=== PATIENT | female | born 1970 | race Caucasian/White ===

== ENCOUNTER → 2016-11-09 | Outpatient (CLI) | payer BC ==
[~2016-11-09] MED LIST: PRENTAB26 PO
--- NOTE | 2016-11-09 10:08 | DIAGNOSTIC IMAGING REPORT ---
MRI soft tissue pelvis and left thigh LEFT LOWER EXT NON JOINT W/O CLINICAL HISTORY: ISC HEAL Bursitis, l HAMSTRING TEAR TECHNIQUE: Multiaxial MRI acquisition COMPARISON STUDY: None FINDINGS: Signal characteristics of the bulk of the osseous as well as soft tissue structures are unremarkable. There are findings of an increase in signal at the hamstring insertion at the posterior ischial tuberosity. Appears be a partial intrasubstance tear near the insertion. More distal aspects of the tendon as well as muscular structures appear to be unremarkable. This is at the site of the biceps femoris and semitendinosi musculature insertion. Osseous structures show no significant bone marrow replacing process. Bladder is midline. There is no significant free fluid within the pelvic cul-de-sac. IMPRESSION: 1. Partial tear of the hamstring musculature insertion at the posterior ischial tuberosity.. 2. Tear primarily in in follows the central aspects of the tendons of the semitendinosus and biceps femoris 3. There is partial with no evidence for musculotendinous retraction Electronically signed by: Kieran Reyes M.D. 11/09/2016 10:07 AM Dictated Date/Time: 11/09/2016 9:58 AM
== END | disposition home or self-care (01) ==
LOC: C.MRIBC 08:27
PROVIDERS: ATTEND Orthopaedic Surgery
DX: M70.72 Other bursitis of hip, left hip (principal); S76.312A Strain of muscle, fascia and tendon of the posterior muscle group at thigh level, left thigh, initial encounter; X58.XXXA Exposure to other specified factors, initial encounter

== ENCOUNTER 2022-04-13 13:59 | Inpatient (IN) ==
[2022-04-13] MEDS ORDERED: SODIUM CHLORIDE 0.9% 1000ML 1,000 ML IV ONE (14:15)
--- NOTE | 2022-04-13 14:22 | Emergency Department Note ---
History of Present Illness General Chief complaint: Illness Stated complaint: SOB Time Seen by Provider: 04/13/22 14:03 History of Present Illness Provider complaint: Shortness of breath Onset (ago): day(s) 1 Associated symptoms: + shortness of breath; no chest pain, no cough, no fever/chills, no headaches or no nausea/vomiting 52-year-old female presents emergency department for shortness of breath. 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 While in [place], the patient was diagnosed with lung cancer and was started on a oral chemotherapy medication in [place] for the lung cancer. The patient flew back to the [facility] on March 26 and was developing shortness of breath while on the flight. When the patient landed in [place], the patient was taken to an emergency department there and was admitted to the ICU in [place] for saddle pulmonary embolus and COVID-19. The patient is on Lovenox. The patient has been wearing 2 to 4 L nasal cannula. The patient became increasing shortness of breath today and was satting 70% on the 4 L nasal cannula. Patient was placed on nonrebreather by EMS which improved her oxygen saturation. The patient denies any fever or cough. The patient denies any headache nausea vomiting or diarrhea. No melena or hematochezia. Home Medications Medication Instructions Recorded Confirmed Type Multivit/Min/Iron/Fol Ac/Pren 1 tab PO DAILY ##0 07/14/08 04/13/22 History ( Vitamin) enoxaparin 60 mg/0.6 mL 60 mg subcut BID 04/13/22 04/13/22 History subcutaneous syringe mirtazapine 7.5 mg PO HS 04/13/22 04/13/22 History osimertinib 80 mg PO HS 04/13/22 04/13/22 History vilazodone 40 mg tablet 40 mg PO DAILY 04/13/22 04/13/22 History Allergies Allergy/AdvReac Type Severity Reaction Status Date / Time No Known Allergies Allergy Mild Verified 07/14/08 21:39 Past Med/Surg History Medical History (Updated 04/13/22 @ 18:30 by Wesley Vasquez) COVID History of COVID-19 Lung cancer No pertinent family history Pulmonary embolism Surgical History No pertinent past surgical history Social History Smoking Status: Never smoker Hx Alcohol Use: Yes Alcohol type: wine Hx Substance Use: No Preferred Language: Mauritanian Communication Ability: Effective 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 Beliefs That Will Affect Care: None Current Living Situation: Spouse Other Information That Helps Us Care for You: No Feels Safe at Home: Yes Safety Concerns: Feels Safe At This Time Assistive Devices: Glasses and Oxygen - Continuous Review of Systems A total of 10 systems reviewed and were otherwise negative Physical Exam Vital Signs Vital Signs - 24 hr 04/13/22 14:28 04/13/22 14:33 04/13/22 15:00 Pulse Rate 95 H 112 H Pulse Rate [Right Finger] 105 H Pulse Rhythm Regular Regular Pulse Strength Normal Respiratory Rate 20 20 Respiratory Effort / Characteristics Non-Labored Spontaneous Spontaneous Respiratory Depth Normal Respiratory Pattern Regular Blood Pressure 110/80 Blood Pressure Mean 90 Blood Pressure Position Lying Pulse Oximetry 97 91 96 Oxygen Delivery Method Non-rebreather High Flow Nasal Cannula Non-rebreather Oxygen Flow Rate 15 40 15 Fraction of Inspired Oxygen 80 Sepsis Recent Fever Within 48 Hours No Sepsis New/Unexplained Change in Mental Status N/A Sepsis Action Taken by Nursing No Action Required 04/13/22 15:21 Pulse Rate Pulse Rate [Right Finger] 113 H Pulse Rhythm Pulse Strength Respiratory Rate 18 Respiratory Effort / Characteristics Non-Labored Spontaneous Respiratory Depth Respiratory Pattern Blood Pressure Blood Pressure Mean Blood Pressure Position Pulse Oximetry 96 Oxygen Delivery Method High Flow Nasal Cannula Oxygen Flow Rate 35 Fraction of Inspired Oxygen 40 Sepsis Recent Fever Within 48 Hours Sepsis New/Unexplained Change in Mental Status Sepsis Action Taken by Nursing Physical Exam GENERAL: She is oriented to person, place, and time. Patient on nonrebreather HENT: Exam performed. -Head: Normocephalic and atraumatic. -Right Ear: External ear normal. No mastoid tenderness. -Left Ear: External ear normal. No mastoid tenderness. -Mouth/Throat: The oropharynx is clear and moist. No trismus in the jaw. No dental abscesses or uvula swelling. No oropharyngeal exudate or tonsillar ab scesses. EYES: Conjunctivae and EOM are normal. Pupils are equal, round, and reactive to light. Right eye exhibits no discharge. Left eye exhibits no discharge. No scleral icterus. NECK: Normal range of motion. Neck supple. No JVD present. No spinous process tenderness present. No carotid bruit present. No rigidity. No tracheal deviation and normal range of motion present. No Brudzinski's sign and no Kernig's sign noted. CV: Normal rate, regular rhythm, normal heart sounds and intact distal pulses. There is no peripheral edema. Palpable radial pulses bue. PULM/CHEST: Tachypneic. Rhonchi bilaterally. ABD: The abdomen is soft. Bowel sounds are normal. She has no distension. No mass is present. There is no tenderness. There is no rebound, no guarding, no Armas's sign and no tenderness at McBurney's point. Rovsig negative MUSC/SKEL: Normal range of motion. There is no peripheral edema, tenderness or deformity. LYMPH: No cervical adenopathy. NEURO: She is alert and oriented to person, place, and time. She has normal strength. No cranial nerve deficit or sensory deficit. Coordination and gait normal. GCS eye subscore is 4. GCS verbal subscore is 5. GCS motor subscore is 6. Cerebellar tests wnl. SKIN: Skin is warm and dry. She is not diaphoretic. PSYCH: She has a normal mood and affect. Behavior is normal. Judgment and thought content normal. Course Course 1403: The patient was evaluated in room A9. A complete history and physical exam was performed Cardiac monitoring: An order was placed for continuous cardiac monitoring. The monitor shows a rate of 110 with sinus tachycardia rhythm Patient transitioned from nonrebreather oxygen to high flow nasal cannula. When the patient was taken off nonrebreather the patient's oxygen saturation immediately decreased. 1545: Vital signs stable on supplemental oxygen via high flow nasal cannula. The patient states she feels better with the high flow nasal cannula. Labs show a leukocytosis of 15.29. ABG that was conducted while the patient was on high f low nasal cannula showed a pH of 7.41 PCO2 45 PO2 of 102 bicarb 29. Troponin and proBNP negative. Chest x-ray is concerning for pneumonia. Patient treated with broad-spectrum antibiotics cefepime and vancomycin given her recent stay at the ICU in [place]. Patient be admitted to the [facility] team Dr. Mena notified. Administered Medications Azithromycin 500 mg/ Dextrose 255 mls @ 127.5 mls/hr IV NOW STA Stop: 04/13/22 18:36 Last Admin: 04/13/22 18:00 Dose: 127.5 mls/hr Documented By: DAMON Discontinued Medications Sodium Chloride (Nss 1000ml) 1,000 mls @ 999 mls/hr IV .Q1H1M ONE Stop: 04/13/22 15:15 Last Admin: 04/13/22 15:32 Dose: 999 mls/hr Documented By: RENETTA Cefepime HCl (Maxipime) 2,000 mg in 20 mls @ 5 mls/min IV NOW STA; Protocol Stop: 04/13/22 15:28 Last Admin: 04/13/22 15:41 Dose: 5 mls/min Documented By: RENETTA Vancomycin HCl 1,250 mg/ (Sodium Chloride) 525 mls @ 200 mls/hr IV NOW ONE Stop: 04/13/22 18:02 Last Admin: 04/13/22 16:28 Dose: 200 mls/hr Documented By: RENETTA Critical Care Time Critical Care Time: Yes Total Critical Care Time: 50 I have personally spent greater than 50 minutes of critical care time in the direct management of this patient. This includes bedside care, interpretation of diagnostic studies, and testing, discussion with consultants, patient, and family members, and other required patient management activities. This 50 minutes is in excess of all separately billable procedures. Medical Decision Making Laboratory Data Result diagrams: 04/13/22 14:36 04/13/22 14:36 Lab Results 04/13/22 04/13/22 04/13/22 Range/Units 14:36 14:36 14:36 WBC (4.8-10.8) K/ul RBC (3.93-5.22) M/uL Hgb (12.0-16.0) g/dl Hct (34.1-44.9) % MCV (80.0-100.0) fL MCH (25.0-34.0) pg MCHC (32.0-36.0) g/dL RDW Std Deviation (36.4-46.3) fL RDW Coeff of Regan (11.5-14.5) % Plt Count (130-400) K/uL MPV (9.4-12.3) fL Immature Gran % (Auto) % Neut % (Auto) % Lymph % (Auto) % [place] % (Auto) % Eos % (Auto) % Baso % (Auto) % Neut # (Auto) (1.4-6.5) K/uL Lymph # (Auto) (1.2-3.4) K/uL [place] # (Auto) (0.24-0.82) K/uL Eos # (Auto) (0-0.50) K/uL Baso # (Auto) (0-0.2) K/uL Immature Gran # (Auto) (0.00-0.02) K/uL PT (9.0-12.0) Seconds INR (0.9-1.1) APTT (21.0-31.0) Seconds PTT Ratio ABG pH 7.41 (7.35-7.45) ABG pCO2 45 (35-46) mmHg ABG pO2 102 H (80-95) mmHg ABG HCO3 29 H (19-24) mmol/L ABG O2 Saturation 99.4 H (90-95) % ABG Base Excess 3.2 H (-9-1.8) mEq/L Emmanuel Test Pos (Pos) Oxygen Given 80% Sodium 137 (136-145) mmol/L Potassium 3.9 (3.5-5.1) mmol/L Chloride 105 (98-107) mmol/L Carbon Dioxide 24 (21-32) mmol/L Anion Gap 8 (3-11) BUN 15 (6-23) mg/dl Creatinine 0.75 (0.6-1.2) mg/dl Est Cr Clr Drug Dosing 93.8 ml/min Est GFR ( Amer) 107.7 ml/min Est GFR (Non-Af Amer) 92.9 ml/min BUN/Creatinine Ratio 20.0 (10-20) Glucose 125 H (70-99(Fasting)) mg/dl Calcium 8.5 (8.5-10.1) mg/dl Magnesium 1.9 (1.7-2.4) mg/dl Total Bilirubin 0.3 (0.2-1.0) mg/dl Direct Bilirubin 0.0 (0-0.2) mg/dl AST 34 (13-39) U/L ALT 32 (7-52) U/L Alkaline Phosphatase 57 (34-104) U/L Troponin I High Sens 9.0 (0-14) pg/ml B-Natriuretic Peptide 42 (0-100) pg/ml Total Protein 6.7 (6.0-8.3) gm/dl Albumin 3.3 L (3.4-5.0) gm/dl Lipase 33 (11-82) U/L Procalcitonin (0-0.5) ng/ml SARS-CoV-2, RNA, NAAT (NEGATIVE) 04/13/22 04/13/22 04/13/22 Range/Units 14:36 14:36 14:38 WBC 15.29 H (4.8-10.8) K/ul RBC 4.44 (3.93-5.22) M/uL Hgb 13.8 (12.0-16.0) g/dl Hct 41.6 (34.1-44.9) % MCV 93.7 (80.0-100.0) fL MCH 31.1 (25.0-34.0) pg MCHC 33.2 (32.0-36.0) g/dL RDW Std Deviation 41.5 (36.4-46.3) fL RDW Coeff of Regan 11.9 (11.5-14.5) % Plt Count 214 (130-400) K/uL MPV 9.6 (9.4-12.3) fL Immature Gran % (Auto) 0.9 % Neut % (Auto) 79.4 % Lymph % (Auto) 7.8 % [place] % (Auto) 7.1 % Eos % (Auto) 4.5 % Baso % (Auto) 0.3 % Neut # (Auto) 12.16 H (1.4-6.5) K/uL Lymph # (Auto) 1.19 L (1.2-3.4) K/uL [place] # (Auto) 1.08 H (0.24-0.82) K/uL Eos # (Auto) 0.69 H (0-0.50) K/uL Baso # (Auto) 0.04 (0-0.2) K/uL Immature Gran # (Auto) 0.13 H (0.00-0.02) K/uL PT 11.9 (9.0-12.0) Seconds INR 1.1 (0.9-1.1) APTT 28.9 (21.0-31.0) Seconds PTT Ratio 1.1 ABG pH (7.35-7.45) ABG pCO2 (35-46) mmHg ABG pO2 (80-95) mmHg ABG HCO3 (19-24) mmol/L ABG O2 Saturation (90-95) % ABG Base Excess (-9-1.8) mEq/L Emmanuel Test (Pos) Oxygen Given Sodium (136-145) mmol/L Potassium (3.5-5.1) mmol/L Chloride (98-107) mmol/L Carbon Dioxide (21-32) mmol/L Anion Gap (3-11) BUN (6-23) mg/dl Creatinine (0.6-1.2) mg/dl Est Cr Clr Drug Dosing ml/min Est GFR ( Amer) ml/min Est GFR (Non-Af Amer) ml/min BUN/Creatinine Ratio (10-20) Glucose (70-99(Fasting)) mg/dl Calcium (8.5-10.1) mg/dl Magnesium (1.7-2.4) mg/dl Total Bilirubin (0.2-1.0) mg/dl Direct Bilirubin (0-0.2) mg/dl AST (13-39) U/L ALT (7-52) U/L Alkaline Phosphatase (34-104) U/L Troponin I High Sens (0-14) pg/ml B-Natriuretic Peptide (0-100) pg/ml Total Protein (6.0-8.3) gm/dl Albumin (3.4-5.0) gm/dl Lipase (11-82) U/L Procalcitonin < 0.05 (0-0.5) ng/ml SARS-CoV-2, RNA, NAAT (NEGATIVE) 04/13/22 Range/Units 14:45 WBC (4.8-10.8) K/ul RBC (3.93-5.22) M/uL Hgb (12.0-16.0) g/dl Hct (34.1-44.9) % MCV (80.0-100.0) fL MCH (25.0-34.0) pg MCHC (32.0-36.0) g/dL RDW Std Deviation (36.4-46.3) fL RDW Coeff of Regan (11.5-14.5) % Plt Count (130-400) K/uL MPV (9.4-12.3) fL Immature Gran % (Auto) % Neut % (Auto) % Lymph % (Auto) % [place] % (Auto) % Eos % (Auto) % Baso % (Auto) % Neut # (Auto) (1.4-6.5) K/uL Lymph # (Auto) (1.2-3.4) K/uL [place] # (Auto) (0.24-0.82) K/uL Eos # (Auto) (0-0.50) K/uL Baso # (Auto) (0-0.2) K/uL Immature Gran # (Auto) (0.00-0.02) K/uL PT (9.0-12.0) Seconds INR (0.9-1.1) APTT (21.0-31.0) Seconds PTT Ratio ABG pH (7.35-7.45) ABG pCO2 (35-46) mmHg ABG pO2 (80-95) mmHg ABG HCO3 (19-24) mmol/L ABG O2 Saturation (90-95) % ABG Base Excess (-9-1.8) mEq/L Emmanuel Test (Pos) Oxygen Given Sodium (136-145) mmol/L Potassium (3.5-5.1) mmol/L Chloride (98-107) mmol/L Carbon Dioxide (21-32) mmol/L Anion Gap (3-11) BUN (6-23) mg/dl Creatinine (0.6-1.2) mg/dl Est Cr Clr Drug Dosing ml/min Est GFR ( Amer) ml/min Est GFR (Non-Af Amer) ml/min BUN/Creatinine Ratio (10-20) Glucose (70-99(Fasting)) mg/dl Calcium (8.5-10.1) mg/dl Magnesium (1.7-2.4) mg/dl Total Bilirubin (0.2-1.0) mg/dl Direct Bilirubin (0-0.2) mg/dl AST (13-39) U/L ALT (7-52) U/L Alkaline Phosphatase (34-104) U/L Troponin I High Sens (0-14) pg/ml B-Natriuretic Peptide (0-100) pg/ml Total Protein (6.0-8.3) gm/dl Albumin (3.4-5.0) gm/dl Lipase (11-82) U/L Procalcitonin (0-0.5) ng/ml SARS-CoV-2, RNA, NAAT NEGATIVE (NEGATIVE) Imaging Data Radiologist's Impression: Chest X-Ray 04/13/22 14:16 XR chest 1V portable HISTORY: 52 years-old Female sob acute shortness of breath COMPARISON: None TECHNIQUE: AP view of the chest FINDINGS: Cardiac silhouette is mildly enlarged. Mixed multifocal bilateral reticular interstitial with nodular airspace opacities. No pneumothorax or large pleural effusion. The bones appear grossly intact. IMPRESSION: Diffuse mixed interstitial with nodular consolidative opacities. Findings favor an infectious or inflammatory pneumonitis. Follow-up imaging to document resolution is needed. ACT 112: Negative or not required by law. The above report was generated using voice recognition software. It may contain grammatical, syntax or spelling errors. Electronically signed by: Nate Lao M.D. 04/13/2022 3:07 PM ECG Data Indication: + SOB/dyspnea Rate (beats per minute): 110 Rhythm: + sinus tachycardia ECG Intervals/blocks: + Normal QRS, + Normal LA and + Normal QT-c ECG ST segments: + Normal ST segments MDM Narrative 1403: The patient was evaluated in room A9. A complete history and physical exam was performed Cardiac monitoring: An order was placed for continuous cardiac monitoring. The monitor shows a rate of 110 with sinus tachycardia rhythm Patient transitioned from nonrebreather oxygen to high flow nasal cannula. When the patient was taken off nonrebreather the patient's oxygen saturation immediately decreased. 1545: Vital signs stable on supplemental oxygen via high flow nasal cannula. The patient states she feels better with the high flow nasal cannula. Labs show a leukocytosis of 15.29. ABG that was conducted while the patient was on high flow nasal cannula showed a pH of 7.41 PCO2 45 PO2 of 102 bicarb 29. Troponin and proBNP negative. Chest x-ray is concerning for pneumonia. Patient treated with broad-spectrum antibiotics cefepime and vancomycin given her recent stay at the ICU in [place]. Patient be admitted to the [facility] team Dr. Mena notified. Impression & Plan Hypoxia, Pneumonia Discharge Plan Visit Data Chief Complaint: Illness Stated Complaint: SOB ED Provider: Wesley Vasquez Discharge Problem: Hypoxia, Pneumonia Patient Disposition: Admitted As Inpatient Discharge Instructions Interventions: ED Discharge Assessment Last Done: 04/13/22 17:34
[2022-04-13 14:46] LABS: Basophils # (auto) 0.04 K/uL (0-0.2); Basophils % (auto) 0.3 %; Eosinophils # (auto) 0.69 K/uL (0-0.50); Eosinophils % (auto) 4.5 %; Hematocrit (blood only) 41.6 % (34.1-44.9); Hemoglobin 13.8 g/dl (12.0-16.0); Immature Granulocytes # (auto) 0.13 K/uL (0.00-0.02); Immature Granulocytes % (auto) 0.9 %; Lymphocytes # (auto) 1.19 K/uL (1.2-3.4); Lymphocytes % (auto) 7.8 %; Mean Corpuscular Hemoglobin 31.1 pg (25.0-34.0); Mean Corpuscular Hgb Conc 33.2 g/dL (32.0-36.0); Mean Corpuscular Volume 93.7 fL (80.0-100.0); Mean Platelet Volume 9.6 fL (9.4-12.3); Monocytes # (auto) 1.08 K/uL (0.24-0.82); Monocytes % (auto) 7.1 %; Neutrophils # (auto) 12.16 K/uL (1.4-6.5); Neutrophils % (auto) 79.4 %; Platelet Count 214 K/uL (130-400); RDW Coefficient of Variation 11.9 % (11.5-14.5); RDW Standard Deviation 41.5 fL (36.4-46.3); Red Blood Count 4.44 M/uL (3.93-5.22); White Blood Count 15.29 K/ul (4.8-10.8)
[2022-04-13 14:47] LABS: Base Excess ABG 3.2 mEq/L (-9-1.8); HCO3 ABG 29 mmol/L (19-24); Oxygen Saturation ABG 99.4 % (90-95); PCO2 ABG 45 mmHg (35-46); PO2 ABG 102 mmHg (80-95); pH ABG 7.41 (7.35-7.45)
[2022-04-13 15:00] LABS: Allen Test Pos (Pos); INR 1.1 (0.9-1.1); Partial Thromboplastin Ratio 1.1; Partial Thromboplastin Time 28.9 Seconds (21.0-31.0); Prothrombin Time 11.9 Seconds (9.0-12.0)
--- NOTE | 2022-04-13 15:09 | XRay Report ---
XR chest 1V portable HISTORY: 52 years-old Female sob acute shortness of breath COMPARISON: None TECHNIQUE: AP view of the chest FINDINGS: Cardiac silhouette is mildly enlarged. Mixed multifocal bilateral reticular interstitial with nodular airspace opacities. No pneumothorax or large pleural effusion. The bones appear grossly intact. IMPRESSION: Diffuse mixed interstitial with nodular consolidative opacities. Findings favor an infect ious or inflammatory pneumonitis. Follow-up imaging to document resolution is needed. ACT 112: Negative or not required by law. The above report was generated using voice recognition software. It may contain grammatical, syntax o r spelling errors. Electronically signed by: Nate Lao M.D. 04/13/2022 3:07 PM
--- NOTE | 2022-04-13 15:12 | Electrocardiogram Report ---
Test Reason : Blood Pressure : / mmHG Vent. Rate : 110 BPM Atrial Rate : 110 BPM P-R Int : 160 ms QRS Dur : 096 ms QT Int : 350 ms P-R-T Axes : 059 238 049 degrees QTc Int : 473 ms Poor data quality, interpretation may be adversely affected Sinus tachycardia Possible Left atrial enlargement Abnormal ECG No previous ECGs available Confirmed by Channing Stovall ([id number]) on 04/13/2022 3:12:04 PM Referred By: REFERRED SELF Confirmed By:Channing Stovall
[2022-04-13] MEDS ORDERED: VANCOMYCIN HCL 1,250 MG in SODIUM CHLORIDE 0.9% 500 ML IV ONE (15:25)
[2022-04-13] MEDS ORDERED: CEFEPIME 2,000 MG/20 ML VIAL IV STA (15:25)
[2022-04-13] MEDS ORDERED: VANCOMYCIN CONSULT ACTIVE PRN (15:25)
[2022-04-13 15:40] LABS: Albumin Level 3.3 gm/dl (3.4-5.0); Bilirubin,Total 0.3 mg/dl (0.2-1.0); Calcium 8.5 mg/dl (8.5-10.1); Creatinine Clr Calc Pharmacy 93.8 ml/min; Est GFR (African American) 107.7 ml/min; Est GFR (Non-African American) 92.9 ml/min; Magnesium 1.9 mg/dl (1.7-2.4); Potassium 3.9 mmol/L (3.5-5.1); Total Protein 6.7 gm/dl (6.0-8.3)
[2022-04-13] MEDS ORDERED: AZITHROMYCIN 500 MG in DEXTROSE 5% 250 ML IV STA (16:37)
--- NOTE | 2022-04-13 16:37 | History & Physical Report ---
Date of Service April 13, 2022 Assessment & Plan (1) Acute hypoxemic respiratory failure: Plan: Acute hypoxemic respiratory failure. Was essentially on room air this morning, then with acute drop to 50% range and requiring 35L 40% HFNC to correct SpO2 to mid 90% range. - Ddx includes new/worse PE, bacterial pneumonia, viral pneumonia, and interstitial pulmonary injury from her osimertinib. - CTA chest ordered stat - Labs ordered including: * Procalcitonin * MRSA nares swab & respiratory PCR * Legionella urine antigen - Continue abx of vancomycin, cefepime, and azithromycin for now - Hold osimertinib - Empiric Solu-Medrol 40 mg IV Q8h per pulmonary - Pulmonary consulted given sudden, severe decline in respiratory status - To be monitored in ICU for next 1-2 days. (2) Pulmonary embolism: Plan: Submassive PE diagnosed after her plane flight on 03/26/2022. 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 Has an appointment with [facility] oncologist on , but otherwise has not established care in the [place]. - Hold osimertinib per oncology - Oncology consulted - Discussed case with Dr. Duran. (4) COVID: Plan: Diagnosed in early February while in [place] and again in hospital at [place] after landing in the . Covid test negative in our ED on admission. - No present needs; do not feel Covid is a significant contributing factor at this time. - Do not feel she needs inpatient isolation History of Present Illness Primary Care Provider: Konrad Avery 52yo F w/ without major medical hx prior to this summer who presents with acute hypoxemic respiratory failure. The patient started to have some shortness of breath in the fall of 2020. She was in [place] on a sabbatical and had ongoing work-up throughout the fall. She was diagnosed with metastatic adenocarcinoma of the lung on 02/10/2022 with spread to the lymph nodes per her and her . She was started on osimertinib on 02/26, and has been taking it since. She traveled home on 03/26 and on the flight had acute onset shortness of breath and required O2 for most of the flight which was new for her. Once they landed, she was taken to a hospital in [place], [place] and diagnosed with a submassive PE. She was there until 04/08/2022 when she was discharged on Lovenox 60 mg SQ BID and a low-dose of home O2. She had been doing well until today after lunch. In the morning, she checked her pulse oximeter, and she reports it was high enough (>90%) that she did not need to use her home O2. She had some exams she was working on, and afterward, went to get lunch a little after noon. She had an episode of acute shortness of breath after lunch and checked her pulse with her pulse oximeter and found it to be 50%. It only partially improved when she put her O2 on and turned it up to 6L. She called her who brought a second tank, and combined, they put her on 11 L which only brought her SpO2 up to the 80% range. In the ER, she was put on high-flow nasal cannula with improvement in her SpO2 to the mid-90%. She reports some mild coughing over the last 2 days, but no purulence. No fevers/chills per patient. No chest pain, no palpitations, no nausea, vomiting, no dysuria, polyuria, or changes in BMs. She did have Covid in early February, then apparently tested positive in the hospital in [place], [place] as well which was thought to be a second infection. Allergies Allergy/AdvReac Type Severity Reaction Status Date / Time No Known Allergies Allergy Mild Verified 07/14/08 21:39 Home Medications Medication Instructions Recorded Confirmed Type Multivit/Min/Iron/Fol Ac/Pren 1 tab PO DAILY ##0 07/14/08 04/13/22 History ( Vitamin) enoxaparin 60 mg/0.6 mL 60 mg subcut BID 04/13/22 04/13/22 History subcutaneous syringe mirtazapine 7.5 mg PO HS 04/13/22 04/13/22 History osimertinib 80 mg PO HS 04/13/22 04/13/22 History vilazodone 40 mg tablet 40 mg PO DAILY 04/13/22 04/13/22 History Past Med/Surg History Medical History (Updated 04/13/22 @ 17:05 by Zay Mena MD) COVID Lung cancer No pertinent family history Pulmonary embolism Surgical History No pertinent past surgical history Social History Smoking Status: Never smoker Feels Safe at Home: Yes Review of Systems Review of Systems: All systems reviewed & are unremarkable except as noted in HPI & below Physical Exam Constitutional: WD/WN, vitals as above Eyes: EOM intact bilaterally; no conjunctival abnormality ENMT: external ear and nose normal, oropharynx normal Neck: trachea midline, no thyromegaly normal visual inspection Respiratory: normal respiratory effort, lungs clear to auscultation no respiratory distress Cardiovascular: Rate/Rhythm: regular rhythm and + tachycardic Heart Sounds: normal S1 and normal S2 Gastrointestinal (Abdomen): Inspection/Auscultation: abdomen normal to inspection; abdomen not distended Musculoskeletal: no cyanosis or clubbing, extremities motor strength 5/5 Skin: no rashes, warm and dry Neurologic: moves all extremities and awake Psychiatric: Orientation: alert, oriented to person and cooperative Results & Data Results & Data ([facility]) Vital Signs (Past 12 Hours) Vital Signs Pulse Pulse Resp BP Pulse Ox O2 Del Method O2 Flow Rate 04/13/22 15:21 113 H 18 96 High Flow Nasal Cannula 35 04/13/22 15:00 112 H 96 Non-rebreather 15 04/13/22 14:33 105 H 20 91 High Flow Nasal Cannula 40 04/13/22 14:28 95 H 20 110/80 97 Non-rebreather 15 FiO2 04/13/22 15:21 40 04/13/22 15:00 04/13/22 14:33 80 04/13/22 14:28 PG Care Time/CCT Total # of Minutes Spent Total Time Spent with Patient: Total time spent is greater than 50% in coordination of care (as documented) at patient's floor/unit and/or counseling patient: Coding Level of Care Code 45156 Initial Inpt Care Lvl 3 Diagnoses Acute hypoxemic respiratory failure J96.01 Pulmonary embolism I26.99 Lung cancer C34.90 COVID U07.1
[2022-04-13] MEDS ORDERED: Heparin IV Adult Wt-Based Standard *NO* Bolus Protocol IV SCH (17:20)
--- NOTE | 2022-04-13 17:33 | Critical Care Consultation ---
Date of Consultation April 13, 2022 Assessment & Plan (1) Acute hypoxemic respiratory failure: (2) Pulmonary embolism: (3) Lung cancer: (4) History of COVID-19: Plan 52-year-old female with a recent diagnosis of adenocarcinoma found to have EGFR mutation on directed therapy also recently diagnosed with COVID-19 and pulmonary embolism. She is currently requiring high flow nasal cannula. Neurologic: No significant issues at present. We will need to review her MRI brain reports to evaluate for metastatic disease. Pulmonary: Continue high flow nasal cannula to maintain saturations above 92%. We will start patient on heparin given her recent diagnosis of pulmonary embolism. We will obtain a CT of her chest and lower extremity Dopplers. The x-ray does appear consistent with a history of lymphangitic carcinomatosis. Alveolar hemorrhage may also be playing a role, but her hemoglobin remains normal and she denies hemoptysis. We will start empiric methylprednisolone at a dose of 40 mg 3 times daily. Start empiric antibiotics. Obtain respiratory bio fire PCR. We will consider bronchoscopy to rule out alveolar hemorrhage. Cardiovascular: Obtain echo to evaluate for pulmonary hypertension in the context of a recently diagnosed pulmonary embolism. Gastrointestinal: Regular diet Renal: No issues at present. Infectious disease: Procalcitonin less than 0.05. Obtain MRSA screen. Start vancomycin, cefepime and azithromycin. Respiratory bio fire was above. Recently treated for COVID- 19 viral pneumonia. Obtain serum beta glucan and urine Legionella antigen. Hematologic: Recent diagnosis of adenocarcinoma of the lung on targeted EGFR therapy. We will consult oncology for further recommendations. Endocrine: No significant issues. Monitor glucose closely while on steroids. VTE prophylaxis: Heparin drip CODE STATUS: Full code Family at bedside: Not available Disposition: ICU Care coordinated with bedside nurse and hospitalist service. I have personally spent 42 minutes of critical care time in the direct management of this patient. This is a life/limb threatening event. This includes time spent evaluating patient, direct bedside care, chart review, placing orders, interpretation of diagnostic studies, discussion with consultants, patient, and family members, as well as other required patient management activities. This time is exclusive of all separately billable procedures, and teaching time and separate from and in addition to any other critical care service time. Thank you for allowing us to participate in the care of this patient. History of Present Illness Reason for Consultation: Acute hypoxemic respiratory failure History of Present Illness 52-year-old female with no significant past medical history who was diagnosed with lipidic adenocarcinoma with lymphangitic carcinomatosis in January of this year. She was on sabbatical in [place]. She started having worsening shortness of breath and fatigue since August. 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 She had a chest x-ray and a CT chest done in [place]. 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 She underwent a bronchoscopy in January which resulted in diagnosis of adenocarcinoma. She was started on EGFR therapy with osimertinib. She notes that she had some swelling in her right lower extremity in [place] and this was thought to be related to targeted therapy. She flew back home in [place] and had increasing shortness of breath. She was found to have a large pulmonary embolism and treated with heparin. She was ultimately discharged with Lovenox. This past week she had increasing shortness of breath. She denies any cough or chest pain. No fevers or chills. She was also recently diagnosed with COVID-19 viral pneumonia and treated with remdesivir and dexamethasone. She was discharged home on supplemental oxygen. She is currently requiring high flow oxygen at a flow rate of 35 L/min and 40% FiO2. Chest x-ray demonstrates diffuse reticulonodular opacities. Patient is a lifelong non-smoker. 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 She has traveled all over the world. I reviewed the notes from her mountain services manager in [place]. I also reviewed the microscopy reports from the bronchoalveolar lavage and microscopy reports were negative. The BAL cytology indicated alveolar hemorrhage, and lepidic adenocarcinoma. Allergies Allergy/AdvReac Type Severity Reaction Status Date / Time No Known Allergies Allergy Mild Verified 07/14/08 21:39 Home Medications Medication Instructions Recorded Confirmed Type Multivit/Min/Iron/Fol Ac/Pren 1 tab PO DAILY ##0 07/14/08 04/13/22 History ( Vitamin) enoxaparin 60 mg/0.6 mL 60 mg subcut BID 04/13/22 04/13/22 History subcutaneous syringe mirtazapine 7.5 mg PO HS 04/13/22 04/13/22 History osimertinib 80 mg PO HS 04/13/22 04/13/22 History vilazodone 40 mg tablet 40 mg PO DAILY 08/15/22 08/15/22 History Patient History Medical History (Updated 04/13/22 @ 17:27 by Gregorio Torres MD) COVID History of COVID-19 Lung cancer No pertinent family history Pulmonary embolism Surgical History No pertinent past surgical history Social History Smoking Status: Never smoker Feels Safe at Home: Yes Review of Systems Review of Systems: All systems reviewed & are unremarkable except as noted in HPI & below Physical Exam Physical Exam: Constitutional: Thin appearing female in no significant distress. High flow nasal cannula in place. Eyes: Pupils are equal round and reactive to light. Conjunctivae are normal. Anicteric sclera. Ears nose, mouth and throat: Mallampati class []. Normal posterior oropharynx. Uvula is midline. Neck: Trachea is midline. Visual inspection is normal. Respiratory: Crackles noted at the right lung base. Mildly increased work of breathing. No wheezes. Cardiovascular: Regular rate and rhythm. No murmurs. No edema. Gastrointestinal: Normal bowel sounds, soft, nontender and nondistended. No hepatosplenomegaly noted. Musculoskeletal: No cyanosis. Patient is able to move all extremities. Skin: No rashes, warm dry and intact. Neurologic: No obvious focal neurological deficits seen. Psychiatric: Alert and oriented x3 with a euthymic affect. Results & Data Results & Data ([facility]) Vital Signs (Past 12 Hours) Vital Signs Pulse Pulse Resp BP Pulse Ox O2 Del Method O2 Flow Rate 04/13/22 15:21 113 H 18 96 High Flow Nasal Cannula 35 04/13/22 15:00 112 H 96 Non-rebreather 15 04/13/22 14:33 105 H 20 91 High Flow Nasal Cannula 40 04/13/22 14:28 95 H 20 110/80 97 Non-rebreather 15 FiO2 04/13/22 15:21 40 04/13/22 15:00 04/13/22 14:33 80 04/13/22 14:28 Coding Level of Care Code Critical Care 1st 30-74 mins Diagnoses Acute hypoxemic respiratory failure J96.01 Pulmonary embolism I26.99 Lung cancer C34.90 History of COVID-19 Z86.16 Time Spent (min) 42
[2022-04-13] MEDS ORDERED: HEPARIN 25000 UNIT/500 ML D5W IV ONE (17:44)
[2022-04-13] MEDS ORDERED: ONDANSETRON INJ 2 MG/ML 2 ML VIAL IV PRN (18:22)
[2022-04-13] MEDS ORDERED: ACETAMINOPHEN 325 MG TAB PO PRN (18:22)
[2022-04-13] MEDS: HEPARIN SODIUM/DEXTROSE 25,000 UNITS/500 ML BAG IV SCH (19:02)
[2022-04-13] MEDS ORDERED: ENOXAPARIN INJ 60 MG/0.6 ML SYR SQ SCH (21:00)
[2022-04-13] MEDS: MIRTAZAPINE TAB 15 MG TAB PO SCH (22:14)
[2022-04-13] MEDS ORDERED: LORazepam 0.5 MG TAB PO STA (22:18)
[2022-04-14] MEDS: methylPREDNISolone 40 MG in SYRINGE 0 ML IV SCH ×3 (01:21→20:31)
[2022-04-14] MEDS: CEFEPIME 2,000 MG in SYRINGE 0 ML IV SCH ×4 (01:22→23:41)
[2022-04-14 01:49] LABS: Hemoglobin 12.2 g/dl (12.0-16.0); Mean Corpuscular Volume 94.1 fL (80.0-100.0); Mean Platelet Volume 9.9 fL (9.4-12.3); Platelet Count 152 K/uL (130-400); RDW Coefficient of Variation 11.9 % (11.5-14.5); RDW Standard Deviation 41.3 fL (36.4-46.3); Red Blood Count 3.93 M/uL (3.93-5.22); White Blood Count 13.58 K/ul (4.8-10.8)
[2022-04-14 02:04] LABS: Partial Thromboplastin Ratio 1.6; Partial Thromboplastin Time 44.8 Seconds (21.0-31.0)
[2022-04-14 02:09] LABS: BUN Creatinine Ratio 19.7 (10-20); Est GFR (African American) 115.1 ml/min; Est GFR (Non-African American) 99.3 ml/min; Magnesium 1.8 mg/dl (1.7-2.4)
[2022-04-14] MEDS ORDERED: MAGNESIUM SULFATE / D5W 1 GM/100 ML BAG IV ONE (02:12)
--- NOTE | 2022-04-14 07:07 | Ultrasound Report ---
ULTRASOUND BILATERAL LOWER EXTREMITY VENOUS CLINICAL HISTORY: Leg pain COMPARISON STUDY: No priors. TECHNIQUE: Real-time, grayscale, and color Doppler sonography of the deep veins of the right and left lower extremity was performed from the inguinal crease to the calf. Compression and augmentation wer e utilized. FINDINGS: Right lower extremity: Occlusive deep venous thrombosis is seen within the right calf within the post erior tibial veins as well as the peroneal veins. No above knee deep venous thrombosis is identified. The common femoral, superficial femoral, and popliteal veins are patent and normally compressible. T he greater saphenous vein and the profunda femoris vein at the junction with the common femoral vein are clear. Left lower extremity: Occlusive superficial venous thrombus is seen within the gastrocnemius vein ext ending from the popliteal fossa into the upper calf. There is no sonographic evidence of deep venous thrombosis in the left lower extremity. The common femoral, superficial femoral, and popliteal veins are patent and normally compressible. The greater saphenous vein and the profunda femoris vein at the junction with the common femoral vein are clear. The visualized deep veins of the calf veins are pat ent. IMPRESSION: 1. There is occlusive deep venous thrombosis in the right calf as above. 2. There is occlusive superficial venous thrombosis in the left lower extremity as above. ACT 112: Negative or not required by law. Electronically signed by: Frankie Dempsey M.D. 04/14/2022 7:06 AM
[2022-04-14] MEDS ORDERED: OPTIRAY 300 500mL IV ONE (07:46)
[2022-04-14] MEDS ORDERED: STAT IV STA (07:54)
--- NOTE | 2022-04-14 07:59 | Critical Care Progress Note ---
Date of Service April 14, 2022 Assessment & Plan (1) Acute hypoxemic respiratory failure: (2) Pulmonary embolism: (3) Lung cancer: (4) History of COVID-19: (5) Pneumonitis: Plan 52-year-old female with a recent diagnosis of adenocarcinoma found to have EGFR mutation on directed therapy also recently diagnosed with COVID-19 and pulmonary embolism. She is currently requiring high flow nasal cannula. Neurologic: No significant issues at present. We will need to review her MRI brain reports to evaluate for metastatic disease. Pulmonary: Her oxygen requirements have improved significantly and she is currently on 6 L of oxygen. 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 CT chest from today reviewed with large bilateral pulmonary emboli. Patient notes that she had a saddle pulmonary embolism recently. We are getting the CT chest from the outside hospital uploaded. Heparin drip therapeutic at this time. Hypoxia likely multifactorial due to possible pneumonitis, lymphangitic carcinomatosis and pulmonary embolism. The primary tumor is difficult to identify on the CT chest given the lepidic nature of her adenocarcinoma. She had an MRI of her brain in [place] this past year and which was negative for metastases. She did not have any CT abdominal imaging or PET scan for complete staging. She appears to have cystic disease on her CT chest from today. We will compare this to her prior imaging. Cardiovascular: Echo completed with results pending. Will evaluate for pulmonary pretension. Gastrointestinal: Regular diet Renal: No issues at present. Replace electrolytes as needed. Infectious disease: Procalcitonin less than 0.05. MRSA screen negative. Discontinue vancomycin. Continue cefepime and azithromycin. Respiratory bio fire pending. Recently treated for COVID-19 viral pneumonia. Serum beta glucan pending. Urine Legionella pending. Hematologic: Recent diagnosis of adenocarcinoma of the lung on targeted EGFR therapy. Alternative therapy due to concerns of possible pneumonitis. Patient also with failure of treatment with Lovenox. Evidence of acute PE. This may be resolving pulmonary embolism from her prior admission at an outside hospital. She may also have tumor emboli syndrome but this is difficult to test for. Lower extremity ultrasound with occlusive DVT in the right calf and occlusive superficial venous thrombosis in the left lower extremity. Primary tumor difficult to identify, but very likely to be lung origin given the mutation. Endocrine: No significant issues. Monitor glucose closely while on steroids. VTE prophylaxis: Heparin drip CODE STATUS: Full code Family at bedside: Not available Disposition: ICU I have personally spent 42 minutes of critical care time in the direct management of this patient. This is a life/limb threatening event. This includes time spent evaluating patient, direct bedside care, chart review, placing orders, interpretation of diagnostic studies, discussion with consultants, patient, and family members, as well as other required patient management activities. This time is exclusive of all separately billable procedures, and teaching time and separate from and in addition to any other critical care service time. Thank you for allowing us to participate in the care of this patient. Admission and Anticipated Discharge Date Admission Date: April 13, 2022 Subjective Patient seen and examined this morning. She appears comfortable. Remains on high flow nasal cannula. She went for CT chest this morning. Breathing is comfortable. Minimal shortness of breath at rest. She does have shortness of breath with exertion. Hemodynamics unremarkable. Physical Exam Physical Exam: Constitutional: Thin appearing female in no significant distress. High flow nasal cannula in place. Eyes: Pupils are equal round and reactive to light. Conjunctivae are normal. Anicteric sclera. Ears nose, mouth and throat: Deferred. Neck: Trachea is midline. Visual inspection is normal. Respiratory: Crackles noted at the right lung base. Mildly increased work of breathing. No wheezes. Cardiovascular: Regular rate and rhythm. No murmurs. No edema. Gastrointestinal: Normal bowel sounds, soft, nontender and nondistended. No hepatosplenomegaly noted. Musculoskeletal: No cyanosis. Patient is able to move all extremities. Skin: No rashes, warm dry and intact. Neurologic: No obvious focal neurological deficits seen. Psychiatric: Alert and oriented x3 with a euthymic affect. Results & Data Results & Data ([facility]) Vital Signs (Past 12 Hours) Vital Signs Temp Pulse Pulse Resp BP Pulse Ox O2 Del Method 04/14/22 05:00 59 L 18 97 High Flow Nasal Cannula 04/14/22 05:00 36.5 C 04/14/22 04:00 55 L 21 97 04/14/22 04:00 92/51 L 04/14/22 03:00 68 34 H 99 04/14/22 03:00 101/53 L 04/14/22 02:00 57 L 20 98 04/14/22 02:00 87/46 L 04/14/22 01:00 60 22 98 04/14/22 01:00 87/51 L 04/14/22 00:00 68 20 97 04/14/22 00:00 100/55 L 04/14/22 01:00 36.4 C L 04/13/22 23:00 70 24 97 04/13/22 23:00 100/55 L 04/13/22 22:00 91 H 26 H 89 L 04/13/22 22:00 107/73 04/13/22 21:00 89 13 92 04/13/22 21:00 113/59 L 04/14/22 00:00 70 04/13/22 22:53 72 22 97 High Flow Nasal Cannula 04/13/22 20:00 107 H 28 H 92 High Flow Nasal Cannula 04/13/22 20:00 122/76 04/13/22 20:16 High Flow Nasal Cannula 04/13/22 20:15 37.2 C 04/13/22 20:00 94 H 26 H 92 High Flow Nasal Cannula O2 Flow Rate FiO2 04/14/22 05:00 30 45 04/14/22 05:00 04/14/22 04:00 04/14/22 04:00 04/14/22 03:00 04/14/22 03:00 04/14/22 02:00 04/14/22 02:00 04/14/22 01:00 04/14/22 01:00 04/14/22 00:00 04/14/22 00:00 04/14/22 01:00 04/13/22 23:00 04/13/22 23:00 04/13/22 22:00 04/13/22 22:00 04/13/22 21:00 04/13/22 21:00 04/14/22 00:00 04/13/22 22:53 30 60 04/13/22 20:00 30 40 04/13/22 20:00 04/13/22 20:16 30 40 04/13/22 20:15 04/13/22 20:00 30 40 Coding Level of Care Code 72586 Subs Hosp Care Lvl 3 Diagnoses Acute hypoxemic respiratory failure J96.01 Pulmonary embolism I26.99 Lung cancer C34.90 History of COVID-19 Z86.16 Pneumonitis J18.9
[2022-04-14] MEDS ORDERED: VANCOMYCIN HCL 1,000 MG in SODIUM CHLORIDE 0.9% 250 ML IV SCH (08:00)
[2022-04-14] MEDS ORDERED: CALCIUM GLUCONATE 10% 1,000 MG in DEXTROSE 5% 50 ML IV ONE (08:00)
--- NOTE | 2022-04-14 08:08 | CT Scan Report ---
CT ANGIOGRAPHY OF THE CHEST, PULMONARY EMBOLUS PROTOCOL CLINICAL HISTORY: Shortness of breath. Chest pain. Reported history of lung cancer. Evaluate for pulm onary embolus. COMPARISON STUDY: Chest radiograph April 13, 2022. TECHNIQUE: Following IV administration of 1 mL of Optiray, helical axial images of the chest were obt ained utilizing the pulmonary embolus protocol. Maximal intensity projections and sagittal and coron al reformats were viewed on an independent 3D workstation. IV contrast was administered without comp lication. Automated exposure control was utilized for the study. A dose lowering technique was util ized adhering to the principles of ALARA. CT DOSE: 265.62 mGy.cm FINDINGS: Note is made of numerous pulmonary emboli. These include emboli within the lobar pulmonary arteries of the bilateral lower lobes extending into segmental branches of both lower lobes. There a re additional segmental emboli within the left upper lobe. Mild cardiomegaly is noted. There is strai ghtening of the interventricular septum. Trace pericardial effusion is present. There is a small hiat al hernia. No pneumothorax or pleural effusion is present. Note is made of extensive nodular airspace opacities throughout the lungs. These are superimposed upon chronic lung disease. Specifically, note is made of innumerable cystic foci throughout the lungs which have thin park. No cavitation is pres ent. Central airways are patent. No acute fracture or suspicious lesion within the visualized bony th orax. Visualized portions of the upper abdomen are unremarkable. IMPRESSION: 1. Numerous bilateral pulmonary emboli, as described above. Straightening of the interventricular sep tasha and mild dilatation of the right ventricle raises the possibility of right heart strain. 2. Extensive nodular opacities throughout the lungs. The appearance favors pneumonia. However, a neop lastic etiology cannot be excluded given the reported history of lung cancer. Correlation with prior imaging studies, if available, is recommended. 3. Numerous cystic/emphysematous foci throughout the lungs. The findings favor emphysema however cyst ic lung disease could appear similar. ACT 112: Negative or not required by law. Electronically signed by: Ezekiel Roger M.D. 04/14/2022 8:06 AM
[2022-04-14] MEDS: AZITHROMYCIN 250 MG TAB PO SCH (08:31)
[2022-04-14 08:37] LABS: Adenovirus PCR Not Detected (NotDetected); Bordetella parapertussis PCR Not Detected (NotDetected); Bordetella pertussis PCR Not Detected (NotDetected); Chlamydia pneumoniae PCR Not Detected (NotDetected); Coronavirus 229E PCR Not Detected (NotDetected); Coronavirus CoV-2 (COVID19)PCR Not Detected (NotDetected); Coronavirus HKU1 PCR Not Detected (NotDetected); Coronavirus NL63 PCR Not Detected (NotDetected); Coronavirus OC43PCR Not Detected (NotDetected); Human Metapneumovirus PCR Not Detected (NotDetected); Influenza A PCR Not Detected (NotDetected); Influenza B PCR Not Detected (NotDetected); Mycoplasma pneumoniae PCR Not Detected (NotDetected); Parainfluenza Virus 1 PCR Not Detected (NotDetected); Parainfluenza Virus 2 PCR Not Detected (NotDetected); Parainfluenza Virus 3 PCR Not Detected (NotDetected); Parainfluenza Virus 4 PCR Not Detected (NotDetected); Respiratory Syncytial VirusPCR Not Detected (NotDetected); Rhinovirus/Enterovirus PCR Not Detected (NotDetected)
[2022-04-14 09:21] LABS: Partial Thromboplastin Ratio 1.9
[2022-04-14 09:22] LABS: Partial Thromboplastin Time 52.4 Seconds (21.0-31.0)
[2022-04-14] MEDS: [UNRECOGNIZED DRUG - REMARK] SCH (09:49)
[2022-04-14] MEDS: VILAZODONE HCL 40 MG PO SCH (09:57)
--- NOTE | 2022-04-14 13:38 | Hospitalist Progress Note ---
Date of Service April 14, 2022 Assessment & Plan (1) Acute hypoxemic respiratory failure: Plan: Acute hypoxemic respiratory failure. Was essentially on room air morning of admission, then with acute drop to 50% range and requiring 35L 40% HFNC to correct SpO2 to mid 90% range. CTA chest on 04/14 showed extensive PEs and extensive nodular opacities. MRSA swab and respiratory PCR were both negative. - Ddx includes bacterial pneumonia, viral pneumonia, and interstitial pulmonary injury from her osimertinib. - Continue abx of cefepime and azithromycin for now; vancomycin stopped on 04/13 for negative MRSA swab. - Hold osimertinib - Empiric Solu-Medrol 40 mg IV Q8h per pulmonary - Pulmonary consulted - Plan for bronchoscopy tomorrow. (2) Pulmonary embolism: Plan: Submassive PE diagnosed after her plane flight on 03/26/2022. 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 Has an appointment with [facility] oncologist on , but otherwise has not established care in the [place]. - Hold osimertinib per oncology - Oncology consulted - Discussed case with Dr. Duran. (4) COVID: Plan: Diagnosed in early February while in [place] and again in hospital at [place] after landing in the . Covid test negative in our ED on admission. - No present needs; do not feel Covid is a significant contributing factor at this time. - Do not feel she needs inpatient isolation Admission and Anticipated Discharge Date Admission Date: April 13, 2022 Subjective Definitely more comfortable today. Down to 6L NC and not feeling overly short of breath. No fevers/chills. Reports no chest pain, shortness of breath, abdominal pain, nausea, or vomiting. Physical Exam Constitutional: WD/WN, vitals as above Eyes: EOM intact bilaterally; no conjunctival abnormality ENMT: external ear and nose normal, oropharynx normal Neck: trachea midline, no thyromegaly normal visual inspection Respiratory: normal respiratory effort, lungs clear to auscultation no respiratory distress Cardiovascular: Rate/Rhythm: regular rate and regular rhythm Heart Sounds: normal S1 and normal S2 Extremities: + edema (Trace right ankle edema; improved from yesterday) Gastrointestinal (Abdomen): Inspection/Auscultation: abdomen normal to inspection; abdomen not distended Musculoskeletal: no cyanosis or clubbing, extremities motor strength 5/5 Skin: no rashes, warm and dry Neurologic: moves all extremities and awake Psychiatric: Orientation: alert, oriented to person and cooperative Results & Data Results & Data ([facility]) Vital Signs (Past 12 Hours) Vital Signs Temp Pulse Pulse Resp BP Pulse Ox O2 Del Method 04/14/22 12:00 36.5 C 04/14/22 11:00 80 25 H 90 04/14/22 11:00 132/70 04/14/22 10:00 117/71 04/14/22 10:00 80 23 117/71 91 Nasal Cannula 04/14/22 09:00 87 23 98/62 L 96 Nasal Cannula 04/14/22 08:50 84 19 111/65 86 L Nasal Cannula 04/14/22 07:20 72 24 90 High Flow Nasal Cannula 04/14/22 07:00 70 14 97/59 L 92 High Flow Nasal Cannula 04/14/22 08:00 112 H 04/14/22 08:00 Nasal Cannula 04/14/22 08:00 Nasal Cannula 04/14/22 08:52 Nasal Cannula 04/14/22 07:00 36.4 C 04/14/22 05:00 59 L 18 97 High Flow Nasal Cannula 04/14/22 05:00 36.5 C 04/14/22 04:00 55 L 21 97 04/14/22 04:00 92/51 L 04/14/22 03:00 68 34 H 99 04/14/22 03:00 101/53 L 04/14/22 02:00 57 L 20 98 04/14/22 02:00 87/46 L O2 Flow Rate FiO2 04/14/22 12:00 04/14/22 11:00 04/14/22 11:00 04/14/22 10:00 04/14/22 10:00 6 04/14/22 09:00 6 04/14/22 08:50 6 04/14/22 07:20 30 50 04/14/22 07:00 30 50 04/14/22 08:00 04/14/22 08:00 6 04/14/22 08:00 04/14/22 08:52 6 04/14/22 07:00 04/14/22 05:00 30 45 04/14/22 05:00 04/14/22 04:00 04/14/22 04:00 04/14/22 03:00 04/14/22 03:00 04/14/22 02:00 04/14/22 02:00 PG Care Time/CCT Total # of Minutes Spent Total Time Spent with Patient: Total time spent is greater than 50% in coordination of care (as documented) at patient's floor/unit and/or counseling patient: Coding Level of Care Code 80070 Subseq Hosp Care Lvl 3 Diagnoses Acute hypoxemic respiratory failure J96.01 Pulmonary embolism I26.99 Lung cancer C34.90 COVID U07.1
--- NOTE | 2022-04-14 13:57 | XCELERA ---
[id number]
[2022-04-14] MEDS: HEPARIN SODIUM/DEXTROSE 25,000 UNITS/500 ML BAG IV SCH (15:13)
[2022-04-14] MEDS: MIRTAZAPINE TAB 15 MG TAB PO SCH (20:32)
--- NOTE | 2022-04-15 02:00 | Consultation Report ---
DATE OF SERVICE: 04/14/2022. REASON FOR CONSULTATION: Newly diagnosed lung cancer, on osimertinib. 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 She indicates that while on sabbatical in [place], she developed shortness of breath for which she underwent extensive workup, which was essentially negative. She subsequently had a chest x-ray obtained while in [place] early this year, which revealed abnormal findings for which CT chest was obtained. CT chest was nonspecific and so she underwent bronchoscopy around January 2022 which revealed adenocarcinoma of the lung with molecular testing revealing EGFR and TP53 mutations. She was subsequently started on osimertinib and returned back to the . After arriving in [place], she presented with shortness of breath for which CT angiogram was obtained, which revealed a large pulmonary embolism for which she was initially placed on therapeutic unfractionated heparin and transitioned to weight-based Lovenox. Of note, the patient was also recently diagnosed with COVID-19 pneumonia for which she received remdesivir and dexamethasone. The patient presented to the ER on 04/13/2022 with worsening shortness of breath secondary to hypoxemic respiratory failure for which she initially required 35 liters 40% HFNC. CTA chest obtained on 04/13/2022 revealed numerous bilateral pulmonary emboli with straightening of the intraventricular septum and mild dilatation of the right ventricle, raising possibility of right heart strain, extensive nodular opacities within the lungs with appearance favoring pneumonia; however, neoplastic etiology could not be excluded and numerous cystic/emphysematous foci within the lungs favoring emphysema; however, cystic lung disease could appear similar. Lower extremity ultrasound also obtained on 04/13/2022 revealed occlusive DVT in the right calf as well as occlusive superficial vein thrombosis in the left lower extremity. She was subsequently placed on therapeutic unfractionated heparin, broad- spectrum antibiotics, and Solu-Medrol 40 mg IV q. 8 hours. At the time of evaluating the patient, she was doing better from a respiratory standpoint requiring only 6 liters per minute intranasal oxygen via nasal cannula. She complained of shortness of breath mostly with exertion, but denied any other significant complaints. Denies family history of cancers. ALLERGIES: No known drug allergies. HOME MEDICATIONS: 1. Osimertinib 80 mg p.o. at bedtime. 2. Lovenox. 3. Multivitamin daily. 4. Mirtazapine. 5. Vilazodone. PAST MEDICAL HISTORY: 1. Lung cancer. 2. Pulmonary embolism. PAST SURGICAL HISTORY: Unremarkable. SOCIAL HISTORY: Denies smoking, significant alcohol or illicit drug use. REVIEW OF SYSTEMS: Unremarkable except as noted above. PHYSICAL EXAMINATION: Essentially unremarkable except as noted above. ASSESSMENT AND PLAN: 1. Adenocarcinoma of the lung with EGFR mutation. 2. Bilateral pulmonary embolism and bilateral lower extremity deep venous thrombosis. 3. History of COVID. A very pleasant female who was recently diagnosed with adenocarcinoma of the lung and found to have EGFR and TP53 mutations on molecular testing for which she was placed on Tagrisso in late January 2022. The patient presented with worsening shortness of breath, which I suspect is largely multifactorial due to extensive pulmonary embolisms, recent history of COVID-19 pneumonia, previous underlying lung disease, and possibly interstitial lung disease from osimertinib. Discussed my thoughts with her. I explained to the patient that interstitial lung disease is a rare, but can be a potentially fatal complication of osimertinib. Given multiple potential causes of hypoxic respiratory failure and imaging findings, would recommend BAL to rule out underlying infection. If BAL is negative for infection, she may be a candidate for retrial with osimertinib with possible low-dose steroids.Otherwise, woul treat with carboplatin/pemetrexed. Agree with broad-spectrum antibiotics, steroids, and therapeutic unfractionated heparin at this time. Would recommend switching to Eliquis upon discharge from hospital since she seems to have failed Lovenox with worsening bilateral pulmonary embolisms. The patient is already scheduled to be evaluated by oncologist at [facility] later this month, which she will continue to follow up with. Will be happy to see her at [facility] if she so desires. Thank you for this consult. Oncology will follow the patient peripherally while in the hospital. Please feel free to call if you have any further questions. Job ID: [id number] [facility]ENTERErnie
[2022-04-15] MEDS: methylPREDNISolone 40 MG in SYRINGE 0 ML IV SCH ×3 (03:30→20:13)
[2022-04-15 05:58] LABS: Hematocrit (blood only) 35.6 % (34.1-44.9); Mean Corpuscular Hemoglobin 31.5 pg (25.0-34.0); Mean Corpuscular Hgb Conc 33.7 g/dL (32.0-36.0); Mean Corpuscular Volume 93.4 fL (80.0-100.0); Mean Platelet Volume 9.7 fL (9.4-12.3); Platelet Count 135 K/uL (130-400); RDW Standard Deviation 41.2 fL (36.4-46.3); Red Blood Count 3.81 M/uL (3.93-5.22); White Blood Count 24.52 K/ul (4.8-10.8)
[2022-04-15 06:11] LABS: Partial Thromboplastin Ratio 1.4; Partial Thromboplastin Time 37.5 Seconds (21.0-31.0)
[2022-04-15 06:22] LABS: Basophils # (auto) 0.03 K/uL (0-0.2); Basophils % (auto) 0.1 %; Immature Granulocytes # (auto) 0.28 K/uL (0.00-0.02); Immature Granulocytes % (auto) 1.1 %; Lymphocytes # (auto) 0.98 K/uL (1.2-3.4); Monocytes # (auto) 0.75 K/uL (0.24-0.82); Monocytes % (auto) 3.1 %; Neutrophils # (auto) 22.48 K/uL (1.4-6.5); Neutrophils % (auto) 91.7 %
[2022-04-15 06:27] LABS: BUN Creatinine Ratio 22.7 (10-20); Calcium 8.3 mg/dl (8.5-10.1); Creatinine Clr Calc Pharmacy 101.4 ml/min; Est GFR (African American) 119.4 ml/min; Magnesium 2.1 mg/dl (1.7-2.4); Phosphorus 3.1 mg/dl (2.5-4.9); Potassium 4.3 mmol/L (3.5-5.1)
[2022-04-15] MEDS: CEFEPIME 2,000 MG in SYRINGE 0 ML IV SCH ×2 (07:16→16:14)
[2022-04-15] MEDS ORDERED: MIDAZOLAM HCL 5 MG/ML 1 ML VIAL ONE (08:22)
[2022-04-15] MEDS ORDERED: fentaNYL citrate 100 MCG/2 ML VIAL ONE ×2 (08:23→08:25)
--- NOTE | 2022-04-15 08:27 | History & Physical Bridge Note ---
Date of Service April 15, 2022 History & Physical Bridge Note I have examined the patient, reviewed the History & Physical and in the interval since the performance of the History & Physical I have noted the following changes of clinical significance: no changes noted
--- NOTE | 2022-04-15 08:29 | Pre Anesthesia Assessment ---
Date of Service April 15, 2022 Pre Sedation Assessment Vital Signs Temp Pulse Pulse Resp BP Pulse Ox O2 Del Method 04/15/22 08:14 36.8 C 04/15/22 08:09 High Flow Nasal Cannula 04/15/22 06:00 85 24 95 Nasal Cannula 04/15/22 06:00 119/66 04/15/22 05:00 61 21 04/15/22 06:01 66 14 95 High Flow Nasal Cannula 04/15/22 05:44 36.8 C 04/15/22 04:00 58 L 18 Nasal Cannula 04/15/22 03:00 58 L 19 04/15/22 02:00 61 19 98 04/15/22 02:00 97/47 L 04/15/22 01:00 63 16 97 04/15/22 01:00 109/56 L 04/15/22 02:14 36.7 C 04/15/22 00:00 68 18 96 Nasal Cannula 04/15/22 00:00 105/59 L 04/15/22 00:00 62 04/14/22 23:00 62 18 91 04/14/22 23:00 109/58 L 04/14/22 22:02 68 18 92 04/14/22 22:02 115/43 L 04/14/22 22:00 99 H 22 90 04/14/22 21:00 79 24 91 04/14/22 21:00 123/77 04/14/22 20:00 137/72 Nasal Cannula 04/14/22 19:00 87 25 H 91 04/14/22 19:00 127/91 04/14/22 23:22 Nasal Cannula 04/14/22 20:00 89 18 91 Nasal Cannula 04/14/22 17:00 88 19 142/73 H 91 Nasal Cannula 04/14/22 16:00 88 23 127/75 91 Nasal Cannula 04/14/22 16:00 36.6 C 04/14/22 15:00 81 20 92 04/14/22 15:00 129/70 04/14/22 14:00 85 17 93 04/14/22 13:00 72 21 94 04/14/22 13:00 101/66 04/14/22 12:00 79 25 H 89 L 04/14/22 12:00 128/65 04/14/22 12:00 36.5 C 04/14/22 11:00 80 25 H 90 04/14/22 11:00 132/70 04/14/22 10:00 117/71 04/14/22 10:00 80 23 117/71 91 Nasal Cannula 04/14/22 09:00 87 23 98/62 L 96 Nasal Cannula 04/14/22 08:50 84 19 111/65 86 L Nasal Cannula 04/14/22 08:52 Nasal Cannula O2 Flow Rate FiO2 04/15/22 08:14 04/15/22 08:09 30 50 04/15/22 06:00 6 04/15/22 06:00 04/15/22 05:00 04/15/22 06:01 30 50 04/15/22 05:44 04/15/22 04:00 6 04/15/22 03:00 04/15/22 02:00 04/15/22 02:00 04/15/22 01:00 04/15/22 01:00 04/15/22 02:14 04/15/22 00:00 6 04/15/22 00:00 04/15/22 00:00 04/14/22 23:00 04/14/22 23:00 04/14/22 22:02 04/14/22 22:02 04/14/22 22:00 04/14/22 21:00 04/14/22 21:00 04/14/22 20:00 6 04/14/22 19:00 04/14/22 19:00 04/14/22 23:22 6 04/14/22 20:00 6 04/14/22 17:00 6 04/14/22 16:00 6 04/14/22 16:00 04/14/22 15:00 04/14/22 15:00 04/14/22 14:00 04/14/22 13:00 04/14/22 13:00 04/14/22 12:00 04/14/22 12:00 04/14/22 12:00 04/14/22 11:00 04/14/22 11:00 04/14/22 10:00 04/14/22 10:00 6 04/14/22 09:00 6 04/14/22 08:50 6 04/14/22 08:52 6 Cardiovascular RRR, no murmur, no edema + regular rate + capillary refill normal Respiratory normal respiratory effort, lungs clear to auscultation + respiratory effort normal + crackles Pre-Sedation Airway Assessment Smoking Status: Never smoker Hx Sleep Apnea: No Hx Difficult Intubation: No Short, Thick Neck: No Thyromental Distance: > or= 3.5 Finger Breadths Oral Cavity: + WNL Mallampati Class: I Class III NPO Status Date of Last Intake of Fluids: 04/14/22 Time of Last Intake of Fluids: 22:00 Last Oral Intake of Fluids Comment: 2199 Date of Last Intake of Solid Food: 04/14/22 Time of Last Intake of Solid Foods: 22:00 Procedure Planning Contraindications for Sedation: none Notes The planned sedation has been discussed with the patient. Informed Consent was obtained. I have identified the patient, determined the appropriateness of sedation and have assessed the patient immediately prior to the procedure. All medicine(s) and interventions are by my order.
--- NOTE | 2022-04-15 09:30 | Procedure Note ---
Procedure Note Date of Service April 15, 2022 Note PREOPERATIVE DIAGNOSIS: Inflammatory lung disease POSTOPERATIVE DIAGNOSIS: Inflammatory lung disease PROCEDURE PERFORMED: Flexible fiberoptic bronchoscopy with bronchial alveolar lavage and brushings COMPLICATIONS: None. INDICATION: Rule out infection PROCEDURE: Informed consent was obtained from the patient. Patient signed a consent and this was witnessed by the nurse. Patient was presedated with 5 mg of Versed and 125 mcg of fentanyl. Patient was on 100% oxygen via Vapotherm prior to the procedure with adequate saturations. A bite-block was placed and the bronchoscope was inserted via the bite block. Epiglottis and vocal cords were visualized and appeared to be moving and functioning normally. No lesions noted. Trachea was inspected and appeared normal. Selena was sharp. Bilateral tracheobronchial tree inspection was performed without any obvious lesions or abnormalities. And then performed a BAL of the right upper lobe, right middle lobe, right lower lobe, lingula and left lower lobe. Approximately 60 cc of saline was instilled in each lobe and approximately 20 mL of fluid was aspirated back. This will be sent for cultures. We then performed brushings of the right middle lobe and lingula for microscopy. No significant bleeding was seen. Scope was then completely withdrawn. The patient was arousable and tolerated procedure well. We are currently weaning down her high flow nasal cannula. Bronchoalveolar lavage samples were sent for cell count, Gram stain and bacterial culture, AFB culture and smear, fungal culture and smear, beta glucan, Aspergillus galactomannan, PJP PCR and cytology. Brushings sent for cultures as well. Recommendations: Follow cytology, cell counts and cultures. Coding CPT Codes Pulmonary/Thoracic - Pulmonary and Thoracic: 08369 Dx bronchoscopy/BAL ([id number]) Pulmonary/Thoracic - Pulmonary and Thoracic: 77273 Dx bronchoscopy/brush ([id number]) [facility] [place] Procedure Codes (Charges) Pulmonary/Thoracic Procedure 1: Pulmonary and Thoracic: 24009 Dx bronchoscopy/BAL Procedure 2: Pulmonary and Thoracic: 93393 Dx bronchoscopy/brush Sedation/Anesthesia Procedure 1: Total Sedation Time (minutes): 16
--- NOTE | 2022-04-15 09:47 | Critical Care Progress Note ---
Date of Service April 15, 2022 Assessment & Plan (1) Acute hypoxemic respiratory failure: (2) Pulmonary embolism: (3) Lung cancer: (4) History of COVID-19: (5) Pneumonitis: Plan 52-year-old female with a recent diagnosis of adenocarcinoma found to have EGFR mutation on directed therapy also recently diagnosed with COVID-19 and pulmonary embolism. She is currently requiring high flow nasal cannula. Neurologic: No significant issues at present. MRI of the brain obtained in [place] was negative for metastatic disease. Pulmonary: Her oxygen requirements have improved significantly and she is currently on 6 L of oxygen. 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 CT chest this admission demonstrates increasing clot burden likely due to failure of Lovenox therapy. She has evidence of cystic formation in her lungs and progressive fibrosis possibly related to the targeted EGFR therapy. Bronchoscopy performed with BAL of the right upper lobe, right middle lobe, right lower lobe, lingula and left lower lobe. These are all sent for cultures and cytology. Beta glucan sent from the BAL fluid along with PJP PCR and Aspergillus galactomannan. Differential includes pneumonitis from EGFR therapy, lymphangitic carcinomatosis and infectious etiology. We will likely decrease Solu-Medrol to oral prednisone starting tomorrow. Restart heparin drip given her large pulmonary [place] noted on CT chest. Can transition to Eliquis once she is more stable. Cardiovascular: Echo with a normal LVEF. No evidence of pulmonary hypertension. Gastrointestinal: Regular diet Renal: No issues at present. Replace electrolytes as needed. Infectious disease: Procalcitonin x2 negative. MRSA screen negative. Continue cefepime and azithromycin. Respiratory bio fire negative. Recently treated for COVID-19 viral pneumonia. Serum beta glucan pending. Urine Legionella pending. Follow cultures from the bronchoscopy on 04/15/2022. Hematologic: Recent diagnosis of adenocarcinoma of the lung on targeted EGFR therapy. Possible pneumonitis. Hematology/oncology following the patient. She has an appointment scheduled at [facility] as an outpatient when discharged. Endocrine: No significant issues. Monitor glucose closely while on steroids. VTE prophylaxis: Heparin drip CODE STATUS: Full code Family at bedside: Not available Disposition: Can likely downgrade to PCU later today. I have personally spent 38 minutes of critical care time in the direct management of this patient. This is a life/limb threatening event. This includes time spent evaluating patient, direct bedside care, chart review, placing orders, interpretation of diagnostic studies, discussion with consultants, patient, and family members, as well as other required patient management activities. This time is exclusive of all separately billable procedures, and teaching time and separate from and in addition to any other critical care service time. Thank you for allowing us to participate in the care of this patient. Admission and Anticipated Discharge Date Admission Date: April 13, 2022 Subjective Patient seen and examined. Stable compared to yesterday. Currently on high flow nasal cannula as preoxygenation prior to the bronchoscopy. She underwent bronchoscopy today performed by me and tolerated well. Post procedure chest x- ray reviewed without pneumothorax. Review of Systems Review of Systems: All systems reviewed & are unremarkable except as noted in HPI & below Physical Exam Physical Exam: Constitutional: Thin appearing female in no significant distress. High flow nasal cannula in place. Eyes: Pupils are equal round and reactive to light. Conjunctivae are normal. Anicteric sclera. Ears nose, mouth and throat: Deferred. Neck: Trachea is midline. Visual inspection is normal. Respiratory: Crackles noted at the right lung base. Mildly increased work of breathing. No wheezes. Cardiovascular: Regular rate and rhythm. No murmurs. No edema. Gastrointestinal: Normal bowel sounds, soft, nontender and nondistended. No hepatosplenomegaly noted. Musculoskeletal: No cyanosis. Patient is able to move all extremities. Skin: No rashes, warm dry and intact. Neurologic: No obvious focal neurological deficits seen. Psychiatric: Alert and oriented x3 with a euthymic affect. Results & Data Results & Data ([facility]) Vital Signs (Past 12 Hours) Vital Signs Temp Pulse Pulse Resp BP BP Pulse Ox 04/15/22 09:32 04/15/22 09:06 36.9 C 85 21 144/78 H 95 04/15/22 08:40 69 22 115/64 99 04/15/22 08:14 36.8 C 04/15/22 08:09 04/15/22 06:00 85 24 95 04/15/22 06:00 119/66 04/15/22 05:00 61 21 04/15/22 06:01 66 14 95 04/15/22 05:44 36.8 C 04/15/22 04:00 58 L 18 04/15/22 03:00 58 L 19 04/15/22 02:00 61 19 98 04/15/22 02:00 97/47 L 04/15/22 01:00 63 16 97 04/15/22 01:00 109/56 L 04/15/22 02:14 36.7 C 04/15/22 00:00 68 18 96 04/15/22 00:00 105/59 L 04/15/22 00:00 62 04/14/22 23:00 62 18 91 04/14/22 23:00 109/58 L 04/14/22 22:02 68 18 92 04/14/22 22:02 115/43 L 04/14/22 22:00 99 H 22 90 04/14/22 23:22 O2 Del Method O2 Flow Rate FiO2 04/15/22 09:32 High Flow Nasal Cannula 04/15/22 09:06 High Flow Nasal Cannula 40 100 04/15/22 08:40 High Flow Nasal Cannula 40 100 04/15/22 08:14 04/15/22 08:09 High Flow Nasal Cannula 30 50 04/15/22 06:00 Nasal Cannula 6 04/15/22 06:00 04/15/22 05:00 04/15/22 06:01 High Flow Nasal Cannula 30 50 04/15/22 05:44 04/15/22 04:00 Nasal Cannula 6 04/15/22 03:00 04/15/22 02:00 04/15/22 02:00 04/15/22 01:00 04/15/22 01:00 04/15/22 02:14 04/15/22 00:00 Nasal Cannula 6 04/15/22 00:00 04/15/22 00:00 04/14/22 23:00 04/14/22 23:00 04/14/22 22:02 04/14/22 22:02 04/14/22 22:00 04/14/22 23:22 Nasal Cannula 6 Coding Level of Care Code Critical Care 1st 30-74 mins Diagnoses Acute hypoxemic respiratory failure J96.01 Pulmonary embolism I26.99 Lung cancer C34.90 History of COVID-19 Z86.16 Pneumonitis J18.9 Time Spent (min) 38
--- NOTE | 2022-04-15 10:13 | XRay Report ---
XR chest 1V portable HISTORY: Post Bronchoscopy COMPARISON: Chest CTA 04/14/2022. FINDINGS: No pneumothorax. No pleural effusions. The cardiac silhouette remains mildly enlarged. Diff use interstitial thickening and scattered patchy airspace opacities persist. IMPRESSION: 1. No pneumothorax. 2. No change in the diffuse interstitial thickening and scattered patchy airspace opacities. ACT 112: Negative or not required by law. Electronically signed by: Kobe Landon M.D. 04/15/2022 10:12 AM
[2022-04-15] MEDS: AZITHROMYCIN 250 MG TAB PO SCH (11:27)
[2022-04-15] MEDS: VILAZODONE HCL 40 MG PO SCH (11:27)
[2022-04-15 14:35] LABS: Lymphocyte Body Fluid Man 9 %
[2022-04-15 14:36] LABS: Eosinophil Body Fluid Man 5 %; Fluid Mono/Macrophage 47 %
[2022-04-15 14:37] LABS: Neutrophil Body Fluid Man 39 %
[2022-04-15 14:38] LABS: Eosinophil Body Fluid Man 6 %; Fluid Mono/Macrophage 64 %; Lymphocyte Body Fluid Man 9 %
[2022-04-15 14:40] LABS: Neutrophil Body Fluid Man 21 %
[2022-04-15] MEDS ORDERED: LANTUS PER UNIT CHARGE SQ STA (15:21)
[2022-04-15 16:39] LABS: Partial Thromboplastin Ratio 1.2; Partial Thromboplastin Time 31.7 Seconds (21.0-31.0)
[2022-04-15] MEDS ORDERED: HEPARIN SOD (PORCINE) 1000 UNIT/ML IV ONE (17:15)
--- NOTE | 2022-04-15 17:19 | Hospitalist Progress Note ---
Date of Service April 15, 2022 Assessment & Plan (1) Acute hypoxemic respiratory failure: Plan: Acute hypoxemic respiratory failure. Was essentially on room air morning of admission, then with acute drop to 50% range and requiring 35L 40% HFNC to correct SpO2 to mid 90% range. CTA chest on 04/14 showed extensive PEs and extensive nodular opacities. MRSA swab and respiratory PCR were both negative. - Ddx includes bacterial pneumonia, viral pneumonia, and interstitial pulmonary injury from her osimertinib. - Continue abx of cefepime and azithromycin for now; vancomycin stopped on 04/13 for negative MRSA swab. - Hold osimertinib - Empiric Solu-Medrol 40 mg IV Q8h per pulmonary -> Likely switch to prednisone tomorrow. - Pulmonary consulted - Bronchoscopy today with clear airways. Concern that this is tumor burden with lymphangitic carcinomatosis vs. reaction to chemotherapy. - Will plan to watch bronch cultures until Wednesday. If negative, can possibly discharge either off antibiotics or with short finishing course of oral at pulmonary discretion. (2) Pulmonary embolism: Plan: Submassive PE diagnosed after her plane flight on 03/26/2022. - Was on Lovenox 60 mg SQ BID (Last dose was at 2:00pm on 04/13 as patient and report she forgot to take it this morning) - On heparin gtt - Plan to switch to Eliquis on Wednesday. 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 Has an appointment with [facility] oncologist on , but otherwise has not established care in the . - Hold osimertinib per oncology - Oncology consulted - Discussed case with Dr. Duran. (4) COVID: Plan: Diagnosed in early February while in [place] and again in hospital at [place] after landing in the . Covid test negative in our ED on admission. - No present needs; do not feel Covid is a significant contributing factor at this time. - Do not feel she needs inpatient isolation Admission and Anticipated Discharge Date Admission Date: April 13, 2022 Subjective Seen after bronchoscopy today. Doing well. At 6L NC and breathing comfortably. Reports no fevers/chills, chest pain, shortness of breath, abdominal pain, nausea, or vomiting. Physical Exam Constitutional: WD/WN, vitals as above Eyes: EOM intact bilaterally; no conjunctival abnormality ENMT: external ear and nose normal, oropharynx normal Neck: trachea midline, no thyromegaly normal visual inspection Respiratory: normal respiratory effort, lungs clear to auscultation no respiratory distress Cardiovascular: Rate/Rhythm: regular rate and regular rhythm Heart Sounds: normal S1 and normal S2 Extremities: no edema Gastrointestinal (Abdomen): Inspection/Auscultation: abdomen normal to inspection; abdomen not distended Musculoskeletal: no cyanosis or clubbing, extremities motor strength 5/5 Skin: no rashes, warm and dry Neurologic: moves all extremities and awake Psychiatric: Orientation: alert, oriented to person and cooperative Results & Data Results & Data ([facility]) Vital Signs (Past 12 Hours) Vital Signs Temp Pulse Pulse Resp BP BP Pulse Ox 04/15/22 15:30 72 18 96 04/15/22 15:30 123/76 04/15/22 15:00 69 22 94 04/15/22 14:30 130/72 04/15/22 14:30 77 26 H 94 04/15/22 15:00 36.6 C 04/15/22 14:01 93 H 19 123/74 91 04/15/22 13:30 84 21 114/86 93 04/15/22 13:00 93 H 21 119/80 94 04/15/22 12:30 76 25 H 129/75 95 04/15/22 14:00 74 04/15/22 08:00 90 04/15/22 11:30 74 25 H 94 04/15/22 11:30 118/69 04/15/22 11:01 76 22 91 04/15/22 11:01 113/68 04/15/22 11:55 37.0 C 04/15/22 11:00 76 25 H 77 L 04/15/22 10:30 110/61 04/15/22 10:30 72 20 87 L 04/15/22 10:00 82 21 87 L 04/15/22 10:00 117/68 04/15/22 09:30 86 25 H 90 04/15/22 09:30 113/68 04/15/22 09:25 86 20 95 04/15/22 09:25 122/68 04/15/22 09:22 105/64 04/15/22 09:22 77 16 98 04/15/22 09:20 118/65 04/15/22 09:20 80 20 96 04/15/22 09:17 120/66 04/15/22 09:17 84 22 97 04/15/22 09:15 115/70 04/15/22 09:15 100 H 15 94 04/15/22 09:12 121/75 04/15/22 09:12 83 20 93 04/15/22 09:07 144/77 H 04/15/22 09:07 108 H 19 88 L 04/15/22 09:05 92 H 20 89 L 04/15/22 09:05 144/78 H 04/15/22 09:02 117/74 04/15/22 09:02 100 H 16 91 04/15/22 09:00 94 H 22 92 04/15/22 09:00 121/80 04/15/22 08:57 113/65 04/15/22 08:57 68 12 95 04/15/22 08:52 134/81 04/15/22 08:52 92 H 44 H 96 04/15/22 08:50 95 H 26 H 95 04/15/22 08:50 119/75 04/15/22 08:47 110/59 L 04/15/22 08:47 62 14 96 04/15/22 08:42 116/65 04/15/22 08:42 70 21 98 04/15/22 08:40 115/64 04/15/22 08:40 76 26 H 94 04/15/22 08:37 109/64 04/15/22 08:37 72 21 95 04/15/22 08:35 65 17 97 04/15/22 08:35 107/66 04/15/22 08:32 111/66 04/15/22 08:32 84 21 98 04/15/22 08:00 75 22 85 L 04/15/22 08:00 118/80 04/15/22 07:00 59 L 19 90 04/15/22 07:00 95/54 L 04/15/22 09:42 91 H 20 91 04/15/22 09:32 04/15/22 09:06 36.9 C 85 21 144/78 H 95 04/15/22 08:40 69 22 115/64 99 04/15/22 08:14 36.8 C 04/15/22 08:09 04/15/22 06:00 85 24 95 04/15/22 06:00 119/66 04/15/22 06:01 66 14 95 04/15/22 05:44 36.8 C O2 Del Method O2 Flow Rate FiO2 04/15/22 15:30 04/15/22 15:30 04/15/22 15:00 04/15/22 14:30 04/15/22 14:30 04/15/22 15:00 04/15/22 14:01 Nasal Cannula 6 04/15/22 13:30 Nasal Cannula 6 04/15/22 13:00 Nasal Cannula 6 04/15/22 12:30 Nasal Cannula 6 04/15/22 14:00 04/15/22 08:00 04/15/22 11:30 04/15/22 11:30 04/15/22 11:01 04/15/22 11:01 04/15/22 11:55 04/15/22 11:00 04/15/22 10:30 04/15/22 10:30 04/15/22 10:00 04/15/22 10:00 04/15/22 09:30 04/15/22 09:30 04/15/22 09:25 04/15/22 09:25 04/15/22 09:22 04/15/22 09:22 04/15/22 09:20 04/15/22 09:20 04/15/22 09:17 04/15/22 09:17 04/15/22 09:15 04/15/22 09:15 04/15/22 09:12 04/15/22 09:12 04/15/22 09:07 04/15/22 09:07 04/15/22 09:05 04/15/22 09:05 04/15/22 09:02 04/15/22 09:02 04/15/22 09:00 04/15/22 09:00 04/15/22 08:57 04/15/22 08:57 04/15/22 08:52 04/15/22 08:52 04/15/22 08:50 04/15/22 08:50 04/15/22 08:47 04/15/22 08:47 04/15/22 08:42 04/15/22 08:42 04/15/22 08:40 04/15/22 08:40 04/15/22 08:37 04/15/22 08:37 04/15/22 08:35 04/15/22 08:35 04/15/22 08:32 04/15/22 08:32 04/15/22 08:00 04/15/22 08:00 04/15/22 07:00 04/15/22 07:00 04/15/22 09:42 High Flow Nasal Cannula 30 60 04/15/22 09:32 High Flow Nasal Cannula 04/15/22 09:06 High Flow Nasal Cannula 40 100 04/15/22 08:40 High Flow Nasal Cannula 40 100 04/15/22 08:14 04/15/22 08:09 High Flow Nasal Cannula 30 50 04/15/22 06:00 Nasal Cannula 6 04/15/22 06:00 04/15/22 06:01 High Flow Nasal Cannula 30 50 04/15/22 05:44 PG Care Time/CCT Total # of Minutes Spent Total Time Spent with Patient: Total time spent is greater than 50% in coordination of care (as documented) at patient's floor/unit and/or counseling patient: Coding Level of Care Code 70314 Subseq Hosp Care Lvl 2 Diagnoses Acute hypoxemic respiratory failure J96.01 Pulmonary embolism I26.99 Lung cancer C34.90 COVID U07.1
[2022-04-15] MEDS: HEPARIN SODIUM/DEXTROSE 25,000 UNITS/500 ML BAG IV SCH ×2 (17:31→17:38)
[2022-04-15] MEDS ORDERED: HEPARIN IV BOLUS 3,000 UNITS in SYRINGE 0 ML IV ONE (18:00)
[2022-04-15] MEDS ORDERED: fentaNYL citrate 100 MCG/2 ML VIAL IV STA (18:31)
[2022-04-15] MEDS ORDERED: MIDAZOLAM HCL 5 MG/ML 1 ML VIAL IV STA (18:32)
[2022-04-15] MEDS: MIRTAZAPINE TAB 15 MG TAB PO SCH ×2 (20:13→21:49)
[2022-04-16] MEDS: CEFEPIME 2,000 MG in SYRINGE 0 ML IV SCH ×4 (00:05→23:44)
[2022-04-16 00:51] LABS: Partial Thromboplastin Ratio 2.1
[2022-04-16 00:58] LABS: Partial Thromboplastin Time 57.4 Seconds (21.0-31.0)
[2022-04-16] MEDS: methylPREDNISolone 40 MG in SYRINGE 0 ML IV SCH ×3 (03:23→19:28)
[2022-04-16 05:54] LABS: Hematocrit (blood only) 37.5 % (34.1-44.9); Hemoglobin 12.1 g/dl (12.0-16.0); Mean Corpuscular Hemoglobin 30.6 pg (25.0-34.0); Mean Corpuscular Hgb Conc 32.3 g/dL (32.0-36.0); Mean Corpuscular Volume 94.9 fL (80.0-100.0); Mean Platelet Volume 10.2 fL (9.4-12.3); Platelet Count 121 K/uL (130-400); RDW Coefficient of Variation 12.2 % (11.5-14.5); RDW Standard Deviation 42.4 fL (36.4-46.3); Red Blood Count 3.95 M/uL (3.93-5.22); White Blood Count 20.44 K/ul (4.8-10.8)
[2022-04-16 06:19] LABS: Partial Thromboplastin Ratio 2.3
[2022-04-16 06:22] LABS: BUN Creatinine Ratio 22.7 (10-20); Calcium 8.5 mg/dl (8.5-10.1); Creatinine Clr Calc Pharmacy 104.6 ml/min; Est GFR (African American) 119.4 ml/min; Potassium 4.3 mmol/L (3.5-5.1)
[2022-04-16 06:23] LABS: Basophils # (auto) 0.02 K/uL (0-0.2); Basophils % (auto) 0.1 %; Immature Granulocytes # (auto) 0.17 K/uL (0.00-0.02); Immature Granulocytes % (auto) 0.8 %; Lymphocytes # (auto) 0.82 K/uL (1.2-3.4); Monocytes # (auto) 0.75 K/uL (0.24-0.82); Monocytes % (auto) 3.7 %; Neutrophils # (auto) 18.68 K/uL (1.4-6.5); Neutrophils % (auto) 91.4 %; RBC Morphology Unremarkable
[2022-04-16 07:14] LABS: Partial Thromboplastin Time 64.5 Seconds (21.0-31.0)
[2022-04-16] MEDS: VILAZODONE HCL 40 MG PO SCH (08:57)
[2022-04-16] MEDS: AZITHROMYCIN 250 MG TAB PO SCH (08:57)
[2022-04-16] MEDS: HEPARIN SODIUM/DEXTROSE 25,000 UNITS/500 ML BAG IV SCH (09:04)
--- NOTE | 2022-04-16 10:58 | Pulmonology Progress Note ---
Date of Service April 16, 2022 Assessment & Plan (1) Acute hypoxemic respiratory failure: (2) Pulmonary embolism: (3) Lung cancer: (4) History of COVID-19: (5) Pneumonitis: Plan 52-year-old female with a recent diagnosis of adenocarcinoma found to have EGFR mutation on directed therapy also recently diagnosed with COVID-19 and pulmonary embolism. Transition to Eliquis starting tomorrow. Transition to p.o. prednisone and a dose of 40 mg starting tomorrow and wean down by 5 mg every 3 days. She is to have a follow-up oncology appointment at [facility]. Cultures and cytology pending from bronchoscopy. Continue broad-spectrum antibiotics for the time being. Can likely transition to p.o. antibiotics starting tomorrow for a total treatment of 7 days. Suspect hypoxia is likely related to worsening pulmonary embolism, pneumonitis and lymphangitic carcinomatosis. Admission and Anticipated Discharge Date Admission Date: April 13, 2022 Subjective Patient seen and examined. Shortness of breath with exertion. Denies chest pain. Currently on 6 L of oxygen saturating in the mid 90s. No fevers or chills. Minimal cough. Review of Systems Review of Systems: All systems reviewed & are unremarkable except as noted in HPI & below Physical Exam Physical Exam: Constitutional: Thin appearing female in no significant distress. High flow nasal cannula in place. Eyes: Pupils are equal round and reactive to light. Conjunctivae are normal. Anicteric sclera. Ears nose, mouth and throat: Deferred. Neck: Trachea is midline. Visual inspection is normal. Respiratory: Crackles noted at the right lung base. Mildly increased work of breathing. No wheezes. Cardiovascular: Regular rate and rhythm. No murmurs. No edema. Gastrointestinal: Normal bowel sounds, soft, nontender and nondistended. No hepatosplenomegaly noted. Musculoskeletal: No cyanosis. Patient is able to move all extremities. Skin: No rashes, warm dry and intact. Neurologic: No obvious focal neurological deficits seen. Psychiatric: Alert and oriented x3 with a euthymic affect. Results & Data Results & Data ([facility]) Vital Signs (Past 12 Hours) Vital Signs Temp Pulse Pulse Pulse Resp BP BP 04/16/22 10:40 04/16/22 09:07 18 04/16/22 07:00 36.5 C 64 20 101/65 04/16/22 07:28 67 04/16/22 03:21 36.5 C 53 L 18 94/55 L 04/16/22 01:06 58 L 04/15/22 23:38 36.7 C 54 L 16 106/65 Pulse Ox O2 Del Method O2 Flow Rate 04/16/22 10:40 High Flow Nasal Cannula 6 04/16/22 09:07 94 High Flow Nasal Cannula 6 04/16/22 07:00 90 High Flow Nasal Cannula 5 04/16/22 07:28 04/16/22 03:21 96 Nasal Cannula 5.0 04/16/22 01:06 04/15/22 23:38 97 Nasal Cannula 5.0 PG Care Time/CCT Total # of Minutes Spent Total Time Spent with Patient: Total time spent is greater than 50% in coordination of care (as documented) at patient's floor/unit and/or counseling patient: Coding Level of Care Code 17889 Subseq Hosp Care Lvl 3 Diagnoses Acute hypoxemic respiratory failure J96.01 Pulmonary embolism I26.99 Lung cancer C34.90 History of COVID-19 Z86.16 Pneumonitis J18.9
--- NOTE | 2022-04-16 13:02 | Hospitalist Progress Note ---
Date of Service April 16, 2022 Assessment & Plan (1) Acute hypoxemic respiratory failure: Plan: Acute hypoxemic respiratory failure. Was essentially on room air morning of admission, then with acute drop to 50% range and requiring 35L 40% HFNC to correct SpO2 to mid 90% range. CTA chest on 04/14 showed extensive PEs and extensive nodular opacities. MRSA swab and respiratory PCR were both negative. - Ddx includes bacterial pneumonia, viral pneumonia, and interstitial pulmonary injury from her osimertinib. -Treated with empiric cefepime/azithromycin; vancomycin stopped on 04/13 for negative MRSA swab. - Hold osimertinib - Empiric Solu-Medrol 40 mg IV Q8h per pulmonary -> switched to twice daily 04/16 and switching to prednisone 40 mg starting tomorrow with 5 mg decrease every 3 days - Pulmonary consulted - Bronchoscopy today with clear airways. Concern that this is tumor burden with lymphangitic carcinomatosis vs. reaction to chemotherapy. Overall hypoxia multifactorial with PEs, post-COVID pneumonitis, and lymphangitic carcinomatosis. Recommended to watch bronchoscopy cultures until Wednesday, then possibly progressed to discharge depending on oxygen requirements Continue broad-spectrum antibiotics at this time, total treatment course 7 days (2) Pulmonary embolism: Plan: Submassive PE diagnosed after her plane flight on 03/26/2022. - Was on Lovenox 60 mg SQ BID (Last dose was at 2:00pm on 04/13 as patient and report she forgot to take it wording of admission) - On heparin gtt - Plan to switch to Eliquis on Wednesday. 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 Has an appointment with [facility] oncologist on , but otherwise has not established care in the [place]. - Hold osimertinib per oncology - Oncology consulted - Discussed case with Dr. Duran. (4) COVID: Plan: Diagnosed in early February while in [place] and again in hospital at [place], [place] after [place] the [place]. Covid test negative in our ED on admission. - No present needs; do not feel Covid is a significant contributing factor at this time. May have some element of use reserve/pneumonitis post COVID, but hypoxia likely largely due to cancer and acute PEs as noted -Inpatient isolation not required at this time Admission and Anticipated Discharge Date Admission Date: April 13, 2022 Subjective Seen at bedside. Awake, working on computer. Remains on nasal cannula 6 L. Shortness of breath is slowly improving, but remains significantly dyspneic compared to her normal baseline. Steroids weaned to twice daily today, switching to prednisone tomorrow. Also transitioning to Eliquis tomorrow. Denies bleeding, denies worsening symptoms, denies leg swelling. No fever, chills, sweats, lightheadedness, dizziness. Is not having chest pain at time of assessment. Does have some pain with deep inspiration. No nausea/vomiting. Review of Systems Review of Systems: All systems reviewed & are unremarkable except as noted in Subjective Physical Exam Physical Exam: General: A&Ox3. NAD. Cooperative. HEENT: Atraumatic, normocephalic. Patient/hearing grossly intact at assessment Pulm: CTAB A&P. -wheezes, -rales, -rhonchi. Symmetrical chest rise. No increase in work of breathing. No respiratory distress. On 6 L hfnc nasal cannula Cardiac: RRR, -mrg. Radial pulses intact and symmetrical. Abdominal: Nontender, nondistended, soft. BS present. Results & Data Results & Data ([facility]) Vital Signs (Past 12 Hours) Vital Signs Temp Pulse Pulse Pulse Resp BP BP 04/16/22 11:50 36.4 C L 74 18 104/67 04/16/22 10:40 04/16/22 09:07 18 04/16/22 07:00 36.5 C 64 20 101/65 04/16/22 07:28 67 04/16/22 03:21 36.5 C 53 L 18 94/55 L 04/16/22 01:06 58 L Pulse Ox O2 Del Method O2 Flow Rate 04/16/22 11:50 93 High Flow Nasal Cannula 6 04/16/22 10:40 High Flow Nasal Cannula 6 04/16/22 09:07 94 High Flow Nasal Cannula 6 04/16/22 07:00 90 High Flow Nasal Cannula 5 04/16/22 07:28 04/16/22 03:21 96 Nasal Cannula 5.0 04/16/22 01:06 PG Care Time/CCT Total # of Minutes Spent Total Time Spent with Patient: Total time spent is greater than 50% in coordination of care (as documented) at patient's floor/unit and/or counseling patient: Coding Level of Care Code 79792 Subseq Hosp Care Lvl 3 Diagnoses Acute hypoxemic respiratory failure J96.01 Pulmonary embolism I26.99 Lung cancer C34.90 COVID U07.1
[2022-04-16] MEDS: MIRTAZAPINE TAB 15 MG TAB PO SCH (21:10)
[2022-04-17] MEDS: HEPARIN SODIUM/DEXTROSE 25,000 UNITS/500 ML BAG IV SCH (01:55)
[2022-04-17 07:18] LABS: Basophils # (auto) 0.01 K/uL (0-0.2); Basophils % (auto) 0.1 %; Eosinophils # (auto) 0.01 K/uL (0-0.50); Eosinophils % (auto) 0.1 %; Hematocrit (blood only) 38.2 % (34.1-44.9); Hemoglobin 12.8 g/dl (12.0-16.0); Immature Granulocytes # (auto) 0.12 K/uL (0.00-0.02); Immature Granulocytes % (auto) 0.7 %; Lymphocytes # (auto) 1.49 K/uL (1.2-3.4); Lymphocytes % (auto) 8.7 %; Mean Corpuscular Hemoglobin 31.8 pg (25.0-34.0); Mean Corpuscular Hgb Conc 33.5 g/dL (32.0-36.0); Mean Platelet Volume 9.6 fL (9.4-12.3); Monocytes # (auto) 1.18 K/uL (0.24-0.82); Monocytes % (auto) 6.9 %; Neutrophils # (auto) 14.25 K/uL (1.4-6.5); Neutrophils % (auto) 83.5 %; Platelet Count 112 K/uL (130-400); RDW Coefficient of Variation 12.1 % (11.5-14.5); RDW Standard Deviation 42.1 fL (36.4-46.3); Red Blood Count 4.02 M/uL (3.93-5.22); White Blood Count 17.06 K/ul (4.8-10.8)
[2022-04-17 07:42] LABS: BUN Creatinine Ratio 27.5 (10-20); Calcium 8.7 mg/dl (8.5-10.1); Creatinine Clr Calc Pharmacy 99.6 ml/min; Est GFR (African American) 117.6 ml/min; Est GFR (Non-African American) 101.5 ml/min; Phosphorus 3.6 mg/dl (2.5-4.9); Potassium 4.4 mmol/L (3.5-5.1)
[2022-04-17 08:01] LABS: Partial Thromboplastin Ratio 2.1
[2022-04-17 08:12] LABS: Partial Thromboplastin Time 58.7 Seconds (21.0-31.0)
--- NOTE | 2022-04-17 08:41 | XRay Report ---
XR chest 1V portable CLINICAL HISTORY: follow up infiltrates TECHNIQUE: Single frontal radiograph of the chest was obtained. Comparison: Comparison is made to chest radiograph 04/15/2022 and CTA chest 04/14/2022 FINDINGS: No lines and tubes are seen. Cardiomegaly is noted. Diffuse interstitial thickening is again seen. Th ere is interval improvement in airspace opacities. No evidence of pleural effusion or pneumothorax. IMPRESSION: Demonstration of interstitial opacities. Previously noted airspace opacities are improved, however so me opacities remain. ACT 112: Negative or not required by law. Electronically signed by: Abdifatah Sánchez M.D. 04/17/2022 8:40 AM
[2022-04-17] MEDS ORDERED: predniSONE 20 MG TAB PO SCH (09:00)
[2022-04-17] MEDS: AZITHROMYCIN 250 MG TAB PO SCH (09:33)
[2022-04-17] MEDS: VILAZODONE HCL 40 MG PO SCH (09:34)
[2022-04-17] MEDS: CEFEPIME 2,000 MG in SYRINGE 0 ML IV SCH (10:12)
--- NOTE | 2022-04-17 14:19 | Pulmonology Progress Note ---
Date of Service April 17, 2022 Assessment & Plan (1) Acute hypoxemic respiratory failure: (2) Pulmonary embolism: (3) Lung cancer: (4) History of COVID-19: (5) Pneumonitis: Plan 52-year-old female with a recent diagnosis of adenocarcinoma found to have EGFR mutation on directed therapy also recently diagnosed with COVID-19 and pulmonary embolism. Okay to discharge home on Eliquis and prednisone. Taper by 5 mg every week. BAL cytology results reviewed with the patient. All the cytology results are negative for malignancy. 5% eosinophils noted on the cell counts from the BAL. Microscopy cultures pending, but negative thus far. PJP PCR and beta D glucan from the BAL fluid is pending. We will follow-up with the patient on an outpatient basis. We will fill out [facility] paperwork for the patient. She has an oncology appointment scheduled at [facility] later this month. Suspect hypoxia is likely related to pulmonary embolism, pneumonitis and lymphangitic carcinomatosis. Admission and Anticipated Discharge Date Admission Date: April 13, 2022 Subjective Patient down to 3 L of oxygen. Able to ambulate around the hallways. Feeling better. Less cough. No chest pain. Eager to go home. Review of Systems Review of Systems: All systems reviewed & are unremarkable except as noted in HPI & below Physical Exam Physical Exam: Constitutional: Thin appearing female in no significant distress. High flow nasal cannula in place. Eyes: Pupils are equal round and reactive to light. Conjunctivae are normal. Anicteric sclera. Ears nose, mouth and throat: Deferred. Neck: Trachea is midline. Visual inspection is normal. Respiratory: Crackles noted at the right lung base. Mildly increased work of breathing. No wheezes. Cardiovascular: Regular rate and rhythm. No murmurs. No edema. Gastrointestinal: Normal bowel sounds, soft, nontender and nondistended. No hepatosplenomegaly noted. Musculoskeletal: No cyanosis. Patient is able to move all extremities. Skin: No rashes, warm dry and intact. Neurologic: No obvious focal neurological deficits seen. Psychiatric: Alert and oriented x3 with a euthymic affect. Results & Data Results & Data ([facility]) Vital Signs (Past 12 Hours) Vital Signs Temp Pulse Pulse Pulse Pulse Pulse Pulse 04/17/22 14:11 87 87 103 H 91 H 88 04/17/22 11:56 36.9 C 76 04/17/22 08:36 04/17/22 08:14 36.8 C 60 04/17/22 06:09 04/17/22 03:00 37.0 C 71 Pulse Resp Resp Resp Resp Resp Resp 04/17/22 14:11 18 18 26 H 22 16 04/17/22 11:56 18 04/17/22 08:36 04/17/22 08:14 18 04/17/22 06:09 53 L 16 04/17/22 03:00 20 BP Pulse Ox Pulse Ox Pulse Ox Pulse Ox Pulse Ox Pulse Ox 04/17/22 14:11 88 L 93 90 92 86 L 04/17/22 11:56 110/70 99 04/17/22 08:36 04/17/22 08:14 101/70 04/17/22 06:09 97 04/17/22 03:00 97/61 L 94 O2 Del Method O2 Flow Rate O2 Flow Rate O2 Flow Rate O2 Flow Rate O2 Flow Rate 04/17/22 14:11 1 2 2 2 04/17/22 11:56 04/17/22 08:36 Nasal Cannula 7 04/17/22 08:14 04/17/22 06:09 Nasal Cannula 3.5 04/17/22 03:00 Room Air PG Care Time/CCT Total # of Minutes Spent Total Time Spent with Patient: Total time spent is greater than 50% in coordination of care (as documented) at patient's floor/unit and/or counseling patient: Coding Level of Care Code 06302 Subseq Hosp Care Lvl 2 Diagnoses Acute hypoxemic respiratory failure J96.01 Pulmonary embolism I26.99 Lung cancer C34.90 History of COVID-19 Z86.16 Pneumonitis J18.9
[2022-04-17] MEDS ORDERED: APIXABAN 5 MG TABLET PO ONE (14:47)
[2022-04-17] MEDS ORDERED: AMOXICILLIN/CLAVULANATE 875 MG TAB PO ONE (14:48)
--- NOTE | 2022-04-17 14:50 | Discharge Summary ---
Date of Service April 17, 2022 Admission HPI Per Admitting Provider 52yo F w/ without major medical hx prior to this summer who presents with acute hypoxemic respiratory failure. The patient started to have some shortness of breath in the fall of 2020. She was in [place] on a sabbatical and had ongoing work-up throughout the fall. She was diagnosed with metastatic adenocarcinoma of the lung on 02/10/2022 with spread to the lymph nodes per her and her . She was started on osimertinib on 02/26, and has been taking it since. She traveled home on 03/26 and on the flight had acute onset shortness of breath and required O2 for most of the flight which was new for her. Once they landed, she was taken to a hospital in [place], [place] and diagnosed with a submassive PE. She was there until 04/08/2022 when she was discharged on Lovenox 60 mg SQ BID and a low-dose of home O2. She had been doing well until today after lunch. In the morning, she checked her pulse oximeter, and she reports it was high enough (>90%) that she did not need to use her home O2. She had some exams she was working on, and afterward, went to get lunch a little after noon. She had an episode of acute shortness of breath after lunch and checked her pulse with her pulse oximeter and found it to be 50%. It only partially improved when she put her O2 on and turned it up to 6L. She called her who brought a second tank, and combined, they put her on 11 L which only brought her SpO2 up to the 80% range. In the ER, she was put on high-flow nasal cannula with improvement in her SpO2 to the mid-90%. She reports some mild coughing over the last 2 days, but no purulence. No fevers/chills per patient. No chest pain, no palpitations, no nausea, vomiting, no dysuria, polyuria, or changes in BMs. She did have Covid in early February, then apparently tested positive in the hospital in [place], [place] as well which was thought to be a second infection. Principal Diagnosis Acute worsening pulmonary embolism Lung adenocarcinoma, pneumonitis, possible lymphangitic carcinomatosis Discharge Exam Constitutional WD/WN, vitals as above Respiratory normal respiratory effort; no respiratory distress Auscultation: + crackles (fine bibasal); no diminished lung sounds Cardiovascular RRR, no murmur, no edema Skin no rashes, warm and dry Psychiatric A+Ox3, euthymic affect Discharge Data Allergies Allergy/AdvReac Type Severity Reaction Status Date / Time No Known Allergies Allergy Mild Verified 07/14/08 21:39 Consultations 04/13/22 15:42 ED Decision to Admit Stat 04/13/22 18:22 Consult Network Support Technician Routine Consult Oncology Routine 04/17/22 14:46 Burn CD for patient Stat Ordered Studies 04/13/22 16:09 CT angio chest PE protocol Stat IMPRESSION: 1. Numerous bilateral pulmonary emboli, as described above. Straightening of the interventricular septum and mild dilatation of the right ventricle raises the possibility of right heart strain. 2. Extensive nodular opacities throughout the lungs. The appearance favors pneumonia. However, a neoplastic etiology cannot be excluded given the reported history of lung cancer. Correlation with prior imaging studies, if available, is recommended. 3. Numerous cystic/emphysematous foci throughout the lungs. The findings favor emphysema however cystic lung disease could appear similar. 04/13/22 17:20 US leg [US venous doppler LE BI] Urgent IMPRESSION: 1. There is occlusive deep venous thrombosis in the right calf as above. 2. There is occlusive superficial venous thrombosis in the left lower extremity as above. Hospital Course (1) Acute hypoxemic respiratory failure: Marielena Kirk is a 52 year old female admitted to [facility] from April 13 to 2021 due to shortness of breath and hypoxia. She was diagnosed with acute worsening of previously diagnosed pulmonary embolism despite Lovenox use. This was treated with intravenous heparin during her admission and will be switched to Eliquis on discharge instead of previously prescribed Lovenox as recommended by hematology. Oxygen was slowly weaned from high flow 40 % to 2LPM O2 at rest and on exertion. In addition she was diagnosed with pneumonitis (?secondary to Tagrisso) and possible lymphangitic carcinomatosis. She was reviewed by pulmonology and treated with intravenous steroids and was transition to prednisone on discharge with a slow taper. She will continue on prednisone 40 mg daily for 7 days then reduce by 5 mg every 7 days until finished. Given difficulty to rule out infective etiology she was tr eated empirically with intravenous cefepime and azithromycin during her admission and will be continued on Augmentin on discharge. On discharge she is requiring 2 L of oxygen per minute at rest and on exertion. She will follow up with pulmonology and oncology for ongoing management. (2) Pulmonary embolism: (3) Lung cancer: (4) COVID: Total Time Total Time Spent Total Time Spent (In Minutes): 45 Discharge Plan Discharge Items Patient Disposition: Home - Self-Care Reason For Visit: ACUTE HYPOXEMIC RESPITORY FAILURE Discharge Diagnosis: Acute worsening pulmonary embolism Lung adenocarcinoma, pneumonitis, possible lymphangitic carcinomatosis Activity: As commented below Non-emergency contact: Oncologist and Wire Rope Sling Maker Call non-emergency contact if: you have any medication questions and your symptoms worsen Follow-up/Referrals: Gregorio Torres MD [Physician] - (1 to 2 weeks) Konrad Avery [Primary Care Provider] - Diet: Regular Addtl Attending Provider Instructions: You were admitted to [facility] from April 13 to 2021 due to shortness of breath and low oxygen saturations. You were diagnosed with acute worsening of previously diagnosed pulmonary embolism despite Lovenox use. This was treated with intravenous heparin during your admission and will be switched to Eliquis on discharge instead of previously prescribed Lovenox. In addition you were diagnosed with pneumonitis (?secondary to Tagris[place]) and possible lymphangitic carcinomatosis. This was treated with intravenous steroids and will be transition to prednisone on discharge with a slow taper. Please continue on prednisone 40 mg daily for 7 days then reduce by 5 mg every 7 days until finished (i.e. 40 mg p.o. daily for 7 days, followed by 35 mg p.o. daily for 7 days, followed by 30 mg p.o. daily for 7 days etc...). Please continue primary care provider if you develop worsening heartburn or stomach pain while on prednisone as this can be a sign of a stomach ulcer. Given difficulty to rule out infective etiology you were treated empirically with intravenous antibiotics during her admission and will be continued on oral antibiotics (Augmentin) on discharge. Gradually increase your exercise tolerance as tolerated. On discharge you are requiring 2 L of oxygen per minute at rest and on exertion. Please follow-up with pulmonology in the next 1 to 2 weeks and your oncologist for ongoing treatment. Pending Studies at Discharge: No Stand-Alone Forms: My [facility], Smoking Cessation Medications and DC Order Prescriptions: New Eliquis 5 mg (74 tabs) tablets,dose pack 5 mg PO BID Qty: 74 0RF amoxicillin-pot clavulanate 875-125 mg tablet 1 tab PO BID 4 Days Qty: 8 0RF prednisone 5 mg tablet See Rx Instructions .ROUTE .COMPLEX 56 Days Qty: 252 0RF Rx Instructions: prednisone 5 mg: take 8 tablets (40 mg) daily for 7 days; then decrease by 1 tablet every 7 days until finished Continued Multivit/Min/Iron/Fol Ac/Pren ( Vitamin) tablet 1 tab PO DAILY Qty: 0 vilazodone 40 mg tablet 40 mg PO DAILY mirtazapine 7.5 mg PO HS Discontinued enoxaparin 60 mg/0.6 mL syringe 60 mg subcut BID osimertinib 80 mg PO HS Discharge Orders: Discharge Order (Routine); Ordered 04/17/22 Ordered By: Dimitry Rivera Admission Data Admit Date/Time: 04/13/22 16:50 Attending Provider: Dimitry Rivera Admit Provider: Zay Mena Primary Care Provider: Konrad Avery Other Providers: Zay Mena ; Gregorio Torres ; Hanna Duran Other Interventions: Discharge Summary Assessment (RN) Last Done: 04/17/22 14:31 Coding Level of Care Code D/C DAY MANAGEMENT >30 MINS Diagnoses Acute hypoxemic respiratory failure J96.01 Pulmonary embolism I26.99 Lung cancer C34.90 COVID U07.1
[2022-04-17] MEDS ORDERED: [UNRECOGNIZED DRUG - REMARK] ONE (15:00)
[2022-04-17 19:16] LABS: Fungitell (1-3)-B-D-Glucan <31 pg/mL
[2022-04-21 07:22] LABS: Pneumocystis jirovecii PCRQual NOT DETECTED; Pneumocystis jirovecii Source BRONCHIAL WASH
== END 2022-04-17 17:19 | disposition home or self-care (01) | DRG 166 ==
LOC: ED 13:59 → SUATTDRO 16:50 → 1E 16:50 → 2S 04-15 19:15

== ENCOUNTER 2022-05-19 16:05 | Inpatient (IN) ==
[2022-05-19] MEDS ORDERED: OPTIRAY 300 500mL IV ONE (18:06)
--- NOTE | 2022-05-19 18:18 | CT Scan Report ---
CHEST CTA for PULMONARY ARTERIES CT DOSE: 274.10 mGy.cm HISTORY: Shortness of breath. h/o lung cancer/PE, TECHNIQUE: Multiaxial CT images of the chest were performed following the intravenous administration of contrast to evaluate the pulmonary arteries. Maximal intensity projection images were also obtaine d. A dose lowering technique was utilized adhering to the principles of ALARA. COMPARISON STUDY: Chest CTA 04/14/2022. FINDINGS: No significant abnormality identified within the visualized abdominal structures. No pleura l effusion. Trace pericardial fluid, unchanged. The heart remains mildly enlarged. The thyroid gland enhances normally. No mediastinal or hilar lymphadenopathy. Normal caliber esophagus. No suspicious l ytic are blastic osseous lesions. Normal caliber thoracic aorta with no evidence for dissection. Ther e is persistent flattening of the interventricular septum with mild enlargement of the right ventricl e. This suggests mild right-sided heart strain. Near-complete resolution of the left-sided pulmonary emboli compared to the prior study. There is a small amount of residual thrombus remaining within the left lower lobe segmental branches. Interval progression of the right-sided pulmonary emboli which a re now located within the distal right main pulmonary artery and extending into the right middle and lower lobar pulmonary arteries. The right lower lobe segmental/subsegmental pulmonary emboli are agai n noted. Slight improvement in the consolidative airspace opacities within the bilateral lower lobes. Cystic/emphysematous foci again noted throughout the lungs. Interstitial thickening with innumerable scattered irregular nodules are again noted. This is also slightly improved in the interval. IMPRESSION: 1. Slight progression of the acute on chronic right-sided pulmonary emboli as described above. Near-c omplete resolution of the left-sided pulmonary emboli. 2. Mild right-sided heart strain, unchanged. 3. Innumerable scattered irregular nodular densities and interstitial thickening within the lungs has slightly improved. Bilateral lower lobe consolidative airspace opacities have also slightly improved in the interval. This could represent pneumonia and/or metastatic disease. ACT 112: Negative or not required by law. Electronically signed by: Kobe Landon M.D. 05/19/2022 6:16 PM
--- NOTE | 2022-05-19 18:32 | Emergency Department Note ---
Impression & Plan Pulmonary embolism, Lung cancer, Acute deep vein thrombosis (DVT) of right lower extremity, GASPAR (dyspnea on exertion) ED Provider Note Provider: Adonay Walker MD DATE OF SERVICE: 05/19/2022 CHIEF COMPLAINT: Dyspnea on exertion, CT scan HISTORY OF PRESENT ILLNESS: Patient is a 52-year-old female history of lung cancer as well as pulmonary embolism currently on Eliquis presenting today stat ing that she is been a bit more short of breath with exertion has had to turn up her oxygen level somewhat walking today but is doing okay at rest. Patient states she was here yesterday and had evaluation and talked with her oncology team regarding her symptoms today. They stated they would like her to have a repeat CT scan and thus she came here today. Denies any chest pain, fever, sore throat, leg swelling, or other significant symptoms. Patient states she did come off of steroid taper this past weekend is currently on chemotherapy. Follows with oncology in [place]. REVIEW OF SYSTEMS: A total of 10 review of systems was obtained and negative except as stated above in the HPI. PAST MEDICAL HISTORY: As noted above MEDICATIONS: Reviewed home medications, intermittent oxygen use at home. SOCIAL HISTORY: Lives at home PHYSICAL EXAM: GENERAL: alert and oriented in no acute distress on stretcher Head: normocephalic and atraumatic EYES: No injection, discharge or icterus. NECK: Trachea midline. LUNGS: Airway patent. No retractions. Breath sounds clear with good air entry bilaterally. HEART: Regular rate and rhythm. No chest wall tenderness ABDOMEN: Soft and non-tender, without guarding or rebound. SKIN: Acyanotic, warm, dry, without rashes EXTREMITIES: Without swelling, tenderness or deformity NEUROLOGICAL: No focal deficits. No aphasia. No facial droop or slurred speech. Ambulatory. EK bpm normal sinus rhythm. No PVC or PAC. No acute ST segment elevation or depression with a QTC of 425. CONTINUOUS CARDIAC MONITORING: was ordered and showed a heart rate of 80s-90s bpm in normal sinus rhythm Patient's laboratory studies and imaging reviewed. Differential includes Reactive airway disease, pneumonia, pneumothorax, COPD, CHF, infections, cardiac ischemia, pulmonary embolism, musculoskeletal, gastrointestinal, as well as other pathologies. IMPRESSION/MEDICAL DECISION MAKING: Patient with evaluation yesterday but here with maybe a little more shortness of breath with exertion today and outpatient oncology wanted to obtain a CT. She came here for this today. Not severely tachycardic on evaluation with pulse ox of 90% resting on room air. No infectious symptoms reported. Reviewed work-up of yesterday. Repeat blood work and EKG obtained today. Did complete a CT of the chest today to evaluate for lung pathology. Patient does have a significant extensive history of PE, cancer, as well as pneumonitis. CT scan obtained shows resolution of left-sided pulmonary embolisms with some slight progression of acute on chronic right-sided pulmonary embolisms with unchanged mild right heart strain. Improving interstitial thickening and bibasilar lobe consolidations are noted in comparison to the previous CT from April 14 when she was admitted with PEs at that time. Has been on Eliquis at this point. Troponin reassuring at 5. Discussed with pulmonary Dr. Merino given CTA findings and she follow with their office. Pulmonology recommended obtaining Dopplers of lower extremities to see if there is improvement or worsening of prior DVTs. If there is worsening patient to be started on heparin drip and brought in. If things appearing improved can go home on Eliquis and continue discussed with her outpatient pulmonary and oncology team further care. Left lower extremity DVT is improved however the right lower extremity DVT appears to show some extension. Based on discussion with pulmonology we will start on a heparin drip and bring in for further discussion regarding long-term anticoagulation. Patient updated. DIAGNOSIS: Pulmonary embolism, DVT, long-term anticoagulation, lung adenocarcinoma DISPOSITION: Hospitalist was contacted Patient was agreeable with this plan. Critical Care I have personally spent 34 minutes of critical care time in the direct management of this patient. This includes bedside care, interpretation of diagnostic studies, and testing, discussion with consultants, patient, and family members, and other required patient management activities. These 34 minutes is in excess of all separately billable procedures. Past Med/Surg History Medical History (Updated 05/19/22 @ 23:40 by Adonay Walker M.D.) History of COVID-19 Lung cancer NSCLC Stage Tamera diagnosed 02/18/22 Pulmonary embolism Surgical History No pertinent past surgical history Family History (Updated 05/19/22 @ 13:04 by Clayton Evans MD) Other Family history non-contributory Social History Smoking Status: Never smoker Hx Alcohol Use: Yes Alcohol type: wine Hx Substance Use: No Preferred Language: Chinese Communication Ability: Effective Erp Engineer Required: No Beliefs That Will Affect Care: None marital status: Current Living Situation: Spouse Feels Safe at Home: Yes Assistive Devices: Oxygen - Continuous Allergies Allergies Allergy/AdvReac Type Severity Reaction Status Date / Time No Known Allergies Allergy Mild Verified 05/19/22 20:09 Home Meds Home Medications Medication Instructions Recorded Confirmed vilazodone 40 mg tablet 40 mg PO DAILY 04/13/22 05/19/22 estradiol 1.25 gram/actuation 1.25 g transdermal DAILY 05/06/22 05/19/22 (0.06%) transdermal gel pump mirtazapine 15 mg tablet 15 mg PO HS 05/07/22 05/19/22 prenat.vits,kurtis,esk-oogi-wfnbs 1 tab PO DAILY 05/07/22 05/19/22 Previous Rx's Medication Instructions Recorded apixaban 5 mg (74 tabs) tablets in 5 mg PO BID #74 ea 04/17/22 a dose pack (Eliquis) prednisone 5 mg tablet See Rx Instructions PO .COMPLEX 56 04/17/22 days #252 tabs Portable Oxygen #1 ea 05/06/22 Results & Data (ED) Vital Signs Vital Signs - 24 hr 05/19/22 16:15 05/19/22 18:06 05/19/22 20:06 Temperature 36.9 C Temperature Source Temporal Artery Scan Pulse Rate 93 H Pulse Rate [Apical] Respiratory Rate 16 20 Blood Pressure 100/70 Blood Pressure [Right Arm] 110/68 Blood Pressure Mean 80 Blood Pressure Mean [Right Arm] 82 Pulse Oximetry 95 88 L 90 Oxygen Delivery Method Room Air Room Air Room Air Oxygen Flow Rate 0 Sepsis Recent Fever Within 48 Hours No Sepsis New/Unexplained Change in Mental Status N/A Sepsis Action Taken by Nursing No Action Required Oxygen Flow Rate - Titration 1 Pulse Oximetry Post Tiitration 92 05/19/22 23:00 Temperature Temperature Source Pulse Rate Pulse Rate [Apical] 98 H Respiratory Rate 20 Blood Pressure Blood Pressure [Right Arm] 95/54 L Blood Pressure Mean Blood Pressure Mean [Right Arm] 67 Pulse Oximetry 91 Oxygen Delivery Method Nasal Cannula Oxygen Flow Rate 1 Sepsis Recent Fever Within 48 Hours Sepsis New/Unexplained Change in Mental Status Sepsis Action Taken by Nursing Oxygen Flow Rate - Titration Pulse Oximetry Post Tiitration Laboratory Data Result diagrams: 05/19/22 17:37 05/19/22 17:37 Lab Results 05/19/22 05/19/22 05/19/22 Range/Units 17:37 17:37 17:37 WBC 10.39 (4.8-10.8) K/ul RBC 4.40 (3.93-5.22) M/uL Hgb 13.9 (12.0-16.0) g/dl Hct 41.5 (34.1-44.9) % MCV 94.3 (80.0-100.0) fL MCH 31.6 (25.0-34.0) pg MCHC 33.5 (32.0-36.0) g/dL RDW Std Deviation 48.1 H (36.4-46.3) fL RDW Coeff of Regan 13.9 (11.5-14.5) % Plt Count 168 (130-400) K/uL MPV 10.2 (9.4-12.3) fL Immature Gran % (Auto) 1.0 % Neut % (Auto) 72.0 % Lymph % (Auto) 14.5 % Whitman % (Auto) 8.4 % Eos % (Auto) 3.6 % Baso % (Auto) 0.5 % Neut # (Auto) 7.49 H (1.4-6.5) K/uL Lymph # (Auto) 1.51 (1.2-3.4) K/uL Whitman # (Auto) 0.87 H (0.24-0.82) K/uL Eos # (Auto) 0.37 (0-0.50) K/uL Baso # (Auto) 0.05 (0-0.2) K/uL Immature Gran # (Auto) 0.10 H (0.00-0.02) K/uL PT 11.6 (9.0-12.0) Seconds INR 1.1 (0.9-1.1) APTT 28.5 (21.0-31.0) Seconds PTT Ratio 1.0 Sodium 138 (136-145) mmol/L Potassium 4.1 (3.5-5.1) mmol/L Chloride 103 (98-107) mmol/L Carbon Dioxide 29 (21-32) mmol/L Anion Gap 6 (3-11) BUN 12 (6-23) mg/dl Creatinine 0.78 (0.6-1.2) mg/dl Est Cr Clr Drug Dosing 88.1 ml/min Est GFR ( Amer) 102.7 ml/min Est GFR (Non-Af Amer) 88.6 ml/min BUN/Creatinine Ratio 15.4 (10-20) Glucose 90 (70-99(Fasting)) mg/dl Calcium 8.9 (8.5-10.1) mg/dl Magnesium 2.2 (1.7-2.4) mg/dl Total Bilirubin 0.5 (0.2-1.0) mg/dl AST 20 (13-39) U/L ALT 16 (7-52) U/L Alkaline Phosphatase 43 (34-104) U/L Troponin I High Sens 5.0 (0-14) pg/ml Total Protein 6.6 (6.0-8.3) gm/dl Albumin 3.8 (3.4-5.0) gm/dl Globulin 2.8 (2.5-4.0) gm/dl Albumin/Globulin Ratio 1.4 (0.9-2) Administered Medications Heparin Sodium/Dextrose (Heparin Sodium/Dextrose) 25,000 units in 500 mls @ 23 mls/hr IV .[id number] [facility]; Protocol Stop: 06/18/22 20:59 Last Admin: 05/19/22 21:20 Dose: 1,150 units/hr, 23 mls/hr Documented By: KT Co-signed By: YVONNE Discontinued Medications Heparin Sodium (Porcine) (Heparin Sod (Porcine) 1000 Unit/Ml) 5,000 units IV NOW ONE Stop: 05/19/22 21:16 Last Admin: 05/19/22 21:20 Dose: 5,000 units Documented By: KT Co-signed By: YVONNE Ioversol (Optiray 300 500ml) 112 ml IV ONCE ONE Stop: 05/19/22 18:07 Last Admin: 05/19/22 18:07 Dose: 112 ml Documented By: RODNEY Imaging Data Radiologist's Impression: Chest CTA 05/19/22 16:21 CHEST CTA for PULMONARY ARTERIES CT DOSE: 274.10 mGy.cm HISTORY: Shortness of breath. h/o lung cancer/PE, TECHNIQUE: Multiaxial CT images of the chest were performed following the intra venous administration of contrast to evaluate the pulmonary arteries. Maximal intensity projection images were also obtained. A dose lowering technique was utilized adhering to the principles of ALARA. COMPARISON STUDY: Chest CTA 04/14/2022. FINDINGS: No significant abnormality identified within the visualized abdominal structures. No pleural effusion. Trace pericardial fluid, unchanged. The heart remains mildly enlarged. The thyroid gland enhances normally. No mediastinal or hilar lymphadenopathy. Normal caliber esophagus. No suspicious lytic are blastic osseous lesions. Normal caliber thoracic aorta with no evidence for dissection. There is persistent flattening of the interventricular septum with mild enlargement of the right ventricle. This suggests mild right-sided heart strain. Near-complete resolution of the left-sided pulmonary emboli compared to the prior study. There is a small amount of residual thrombus remaining within the left lower lobe segmental branches. Interval progression of the right-sided pulmonary emboli which are now located within the distal right main pulmonary artery and extending into the right middle and lower lobar pulmonary arteries. The right lower lobe segmental/subsegmental pulmonary emboli are again noted. Slight improvement in the consolidative airspace opacities within the bilateral lower lobes. Cystic/emphysematous foci again noted throughout the lungs. Interstitial thickening with innumerable scattered irregular nodules are again noted. This is also slightly improved in the interval. IMPRESSION: 1. Slight progression of the acute on chronic right-sided pulmonary emboli as described above. Near-complete resolution of the left-sided pulmonary emboli. 2. Mild right-sided heart strain, unchanged. 3. Innumerable scattered irregular nodular densities and interstitial thickening within the lungs has slightly improved. Bilateral lower lobe consolidative airspace opacities have also slightly improved in the interval. This could represent pneumonia and/or metastatic disease. ACT 112: Negative or not required by law. Electronically signed by: Kobe Landon M.D. 05/19/2022 6:16 PM Venous Doppler Study 05/19/22 19:12 BILATERAL LOWER EXTREMITY VENOUS DOPPLER HISTORY: Pulmonary embolus. Assess for DVT. COMPARISON STUDY: Lower extremity venous Doppler 04/13/2022. FINDINGS: The right common femoral vein and right superficial femoral vein are patent. There is occlusive thrombus within the right popliteal vein and one of 2 posterior tibial veins. There is also thrombus within the peroneal veins. No DVT within the left lower extremity. IMPRESSION: 1. Right lower extremity DVT as described above which has slightly progressed in the interval. 2. No DVT within the left lower extremity ACT 112: Negative or not required by law. Electronically signed by: Kobe Landon M.D. 05/19/2022 7:59 PM Discharge Plan Visit Data Chief Complaint: Shortness of Breath/Dyspnea Stated Complaint: REEERRED BY FOR CT SCAN ON LUNGS - SOB ED Provider: Adonay Walker Discharge Problem: Pulmonary embolism, Lung cancer, Acute deep vein thrombosis (DVT) of right lower extremity, GASPAR (dyspnea on exertion) Patient Disposition: Admitted As Inpatient Discharge Instructions Interventions: ED Discharge Assessment Last Done: 05/19/22 23:02 Forms Stand Alone Forms: Clouli Prescriptions Prescriptions: No Action estradiol 1.25 gram/actuation gel in metered-dose pump 1.25 g transdermal DAILY (DME) Portable Oxygen Misc See Rx Instructions .Route Qty: 1 0RF Rx Instructions: 2 L via nasal cannula portable oxygen concentrator to be used on exertion (test for portability) mirtazapine 15 mg tablet 15 mg PO HS prenat.vits,kurtis,[id number]-olupb Tablet 1 tab PO DAILY vilazodone 40 mg tablet 40 mg PO DAILY Eliquis 5 mg (74 tabs) tablets,dose pack 5 mg PO BID Qty: 74 0RF prednisone 5 mg tablet See Rx Instructions .ROUTE .COMPLEX 56 Days Qty: 252 0RF Rx Instructions: prednisone 5 mg: take 8 tablets (40 mg) daily for 7 days; then decrease by 1 tablet every 7 days until finished Referrals Referrals: Konrad Avery [Primary Care Provider] -
[2022-05-19 18:34] LABS: Basophils # (auto) 0.05 K/uL (0-0.2); Basophils % (auto) 0.5 %; Eosinophils # (auto) 0.37 K/uL (0-0.50); Eosinophils % (auto) 3.6 %; Hematocrit (blood only) 41.5 % (34.1-44.9); Hemoglobin 13.9 g/dl (12.0-16.0); Lymphocytes # (auto) 1.51 K/uL (1.2-3.4); Lymphocytes % (auto) 14.5 %; Mean Corpuscular Hemoglobin 31.6 pg (25.0-34.0); Mean Corpuscular Hgb Conc 33.5 g/dL (32.0-36.0); Mean Corpuscular Volume 94.3 fL (80.0-100.0); Mean Platelet Volume 10.2 fL (9.4-12.3); Monocytes # (auto) 0.87 K/uL (0.24-0.82); Monocytes % (auto) 8.4 %; Neutrophils # (auto) 7.49 K/uL (1.4-6.5); Platelet Count 168 K/uL (130-400); RDW Coefficient of Variation 13.9 % (11.5-14.5); RDW Standard Deviation 48.1 fL (36.4-46.3); White Blood Count 10.39 K/ul (4.8-10.8)
[2022-05-19 18:47] LABS: Albumin Globulin Ratio 1.4 (0.9-2); Albumin Level 3.8 gm/dl (3.4-5.0); BUN Creatinine Ratio 15.4 (10-20); Bilirubin,Total 0.5 mg/dl (0.2-1.0); Calcium 8.9 mg/dl (8.5-10.1); Creatinine Clr Calc Pharmacy 88.1 ml/min; Est GFR (African American) 102.7 ml/min; Est GFR (Non-African American) 88.6 ml/min; Globulin 2.8 gm/dl (2.5-4.0); Magnesium 2.2 mg/dl (1.7-2.4); Potassium 4.1 mmol/L (3.5-5.1); Total Protein 6.6 gm/dl (6.0-8.3)
[2022-05-19 18:50] LABS: INR 1.1 (0.9-1.1); Partial Thromboplastin Time 28.5 Seconds (21.0-31.0); Prothrombin Time 11.6 Seconds (9.0-12.0)
--- NOTE | 2022-05-19 20:00 | Ultrasound Report ---
BILATERAL LOWER EXTREMITY VENOUS DOPPLER HISTORY: Pulmonary embolus. Assess for DVT. COMPARISON STUDY: Lower extremity venous Doppler 04/13/2022. FINDINGS: The right common femoral vein and right superficial femoral vein are patent. There is occlu sive thrombus within the right popliteal vein and one of 2 posterior tibial veins. There is also thro mbus within the peroneal veins. No DVT within the left lower extremity. IMPRESSION: 1. Right lower extremity DVT as described above which has slightly progressed in the interval. 2. No DVT within the left lower extremity ACT 112: Negative or not required by law. Electronically signed by: Kobe Landon M.D. 05/19/2022 7:59 PM
[2022-05-19] MEDS ORDERED: Heparin IV Adult Wt-Based Standard WITH Bolus Protocol IV STA (20:43)
[2022-05-19] MEDS ORDERED: HEPARIN SOD (PORCINE) 1000 UNIT/ML IV ONE ×2 (20:59→21:15)
[2022-05-19] MEDS: HEPARIN SODIUM/DEXTROSE 25,000 UNITS/500 ML BAG IV SCH (21:20)
--- NOTE | 2022-05-19 21:32 | History & Physical Report ---
Date of Service May 19, 2022 Assessment & Plan (1) Hypoxia: Plan: 52yo female presenting with 2 days of GASPAR and decreased O2 saturation. She has history of Stage Shankar NSCLC diagnosed in [facility] 02/18/22. 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 Patient on Osimertinib 80mg daily, follows with Oncology at [facility]. 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 DVT/PE on Apixaban anticoagulation with last dose being 05/19/22 AM. Patient hypoxic on room air 86-88%, improved with supplemental O2 - 96% on 2L during my encounter. CT and US results above. Patients symptoms and hypoxemia possibly secondary to progression of PE. Pneumonitis appears to be improved on imaging. No evidence of pulmonary edema, infiltrate or pneumothorax Most likely represents failure of Apixaban therapy. Patient has been compliant with her Apixaban with no missed doses. She has had progression of DVT as well as PE despite adequate treatment. She also reports Lovenox failure in the past as well. Patient has estradiol listed as a home medication which will be discontinued to to increased risk for VTE. -Admit to PCU -Continue supplemental O2 as needed -Heparin gtt initiated in the ER -Hematology consultation appreciated re: anticoagulation - ?Coumadin therapy as next step? (2) Lung cancer: Plan: Chronic. Patient has been taking Osimertinib daily. Possibility of TK-induced pneumonitis for which she was treated with steroids. Medication has temporarily been placed on hold pending results of CT scan. -HIM consultation placed to send CT imaging and results to patient's Oncologist at [facility] - assistance appreciated (3) Pulmonary embolism: Plan: With progression on Apixaban therapy -Holding estradiol. Recommend discontinuing this agent -Heparin gtt -Hematology consultation appreciated to assist with future anticoagulation F/E/N -Heplock. Electrolytes WNL. Regular diet as tolerated Ppx - Heparin gtt Code - Full Dispo -Admit to PCU History of Present Illness Chief Complaint: shortness of breath Primary Care Provider: Konrad Avery Marielena Kirk is a 52yo female with history of Stage SHANKAR NSCLC, adenocarcinoma which was diagnosed in [facility] 02/18/22. 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 Patient on Osimertinib 80mg daily. Patient developed a LLE DVT and PE following a flight from [place] to [place] on March 25, 2022. She was started on Lovenox injections. She had acute worsening of her PEs with hypoxemia while on Lovenox and was started on Apixaban for continued anticoagulation, presumed Lovenox faiure. 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 She has completed a slow taper (decreasing dosage by 5mg every 7 days) with last dose being 05/17/22. Patient has been compliant with her medications. She has been using home O2 as needed, mostly 2-3 L with exertion. She follows with Dr. Abi Streeter at [facility] in [place]. Patient presents today with two days of increased GASPAR and high heart rate. She has noted that her oxygen saturations have been lower with ambulation even while using her home O2 - have been in the upper 80's. She discussed these complaints with her Oncologist and was instructed to get a CT of the chest. In the ER patient is afebrile, HD stable, NAD. She is saturating 86-88% on room air. No complaints of fever, chills, cough, chest pain, allergy symptoms, wheezing, abdominal pain, nausea, vomiting, diarrhea or constipation. No additional complaints at this time. CTA of the chest obtained which revealed slight progression of the acute on chronic right-sided PE with near complete resolution of the left-sided pulmonary emboli. RLE DVT has slightly progressed as well when compared to prior study from 04/13/22. ER Course: Heparin gtt initiated Allergies Allergy/AdvReac Type Severity Reaction Status Date / Time No Known Allergies Allergy Mild Verified 05/19/22 20:09 Home Medications Medication Instructions Recorded Confirmed Type vilazodone 40 mg tablet 40 mg PO DAILY 04/13/22 05/19/22 History apixaban 5 mg (74 tabs) tablets in 5 mg PO BID #74 ea 04/17/22 05/19/22 Rx a dose pack (Eliquis) prednisone 5 mg tablet See Rx Instructions PO .COMPLEX 56 04/17/22 05/19/22 Rx days #252 tabs Portable Oxygen #1 ea 05/06/22 05/19/22 Rx estradiol 1.25 gram/actuation 1.25 g transdermal DAILY 05/06/22 05/19/22 History (0.06%) transdermal gel pump mirtazapine 15 mg tablet 15 mg PO HS 05/07/22 05/19/22 History prenat.vits,kurtis,uan-rruz-kczrz 1 tab PO DAILY 05/07/22 05/19/22 History Past Med/Surg History Medical History (Updated 05/19/22 @ 22:49 by Skylar Rivera DO) History of COVID-19 Lung cancer NSCLC Stage Shankar diagnosed 02/18/22 Pulmonary embolism Surgical History No pertinent past surgical history Family History (Updated 05/19/22 @ 13:04 by Clayton Evans MD) Other Family history non-contributory Social History Smoking Status: Never smoker Hx Alcohol Use: Yes Alcohol type: wine Hx Substance Use: No Preferred Language: Bengali Communication Ability: Effective Python Developer Required: No Beliefs That Will Affect Care: None marital status: Current Living Situation: Spouse Feels Safe at Home: Yes Assistive Devices: Oxygen - Continuous Review of Systems Review of Systems: All systems reviewed & are unremarkable except as noted in HPI & below Physical Exam Physical Exam: General: patient resting comfortably, NAD, non-toxic in appearance, AA&O x 4 Skin: warm, dry, intact, no rashes or lesions HEENT: NC/AT, PERRL, EOMI, anicteric sclera, conjunctiva without injection, external ear normal to inspection and nontender, nares patent, moist mucus membranes, dentition intact, no oropharyngeal lesions, neck supple, trachea midline, no LAD, no thyromegaly, no JVD Heart: +S1/S2, regular, no m/r/g Lungs: equal air entry bilaterally, no rales/rhonchi/wheezes Abd: +BS, soft, NT/ND, no masses/organomegaly/ascites Ext: warm, 2+ pulses in UE/LE bilaterally, no clubbing/cyanosis or edema Neuro: nonfocal, patient AA&O x 4, speech intact, no facial droop, moving all extremities on command with equal strength 5/5 Results & Data Results & Data ([facility]) Vital Signs (Past 12 Hours) Vital Signs Temp Pulse Resp BP BP Pulse Ox O2 Del Method 05/19/22 20:06 20 110/68 90 Room Air 05/19/22 18:06 88 L Room Air 05/19/22 16:15 36.9 C 93 H 16 100/70 95 Room Air O2 Flow Rate 05/19/22 20:06 05/19/22 18:06 0 05/19/22 16:15 Laboratory Results Laboratory Results WBC 10.39 K/ul (4.8-10.8) 05/19/22 17:37 RBC 4.40 M/uL (3.93-5.22) 05/19/22 17:37 Hgb 13.9 g/dl (12.0-16.0) 05/19/22 17:37 Hct 41.5 % (34.1-44.9) 05/19/22 17:37 MCV 94.3 fL (80.0-100.0) 05/19/22 17:37 MCH 31.6 pg (25.0-34.0) 05/19/22 17:37 MCHC 33.5 g/dL (32.0-36.0) 05/19/22 17:37 RDW Std Deviation 48.1 fL (36.4-46.3) H 05/19/22 17:37 RDW Coeff of Regan 13.9 % (11.5-14.5) 05/19/22 17:37 Plt Count 168 K/uL (130-400) 05/19/22 17:37 MPV 10.2 fL (9.4-12.3) 05/19/22 17:37 Immature Gran % (Auto) 1.0 % 05/19/22 17:37 Neut % (Auto) 72.0 % 05/19/22 17:37 Lymph % (Auto) 14.5 % 05/19/22 17:37 Ness % (Auto) 8.4 % 05/19/22 17:37 Eos % (Auto) 3.6 % 05/19/22 17:37 Baso % (Auto) 0.5 % 05/19/22 17:37 Neut # (Auto) 7.49 K/uL (1.4-6.5) H 05/19/22 17:37 Lymph # (Auto) 1.51 K/uL (1.2-3.4) 05/19/22 17:37 Ness # (Auto) 0.87 K/uL (0.24-0.82) H 05/19/22 17:37 Eos # (Auto) 0.37 K/uL (0-0.50) 05/19/22 17:37 Baso # (Auto) 0.05 K/uL (0-0.2) 05/19/22 17:37 Immature Gran # (Auto) 0.10 K/uL (0.00-0.02) H 05/19/22 17:37 PT 11.6 Seconds (9.0-12.0) 05/19/22 17:37 INR 1.1 (0.9-1.1) 05/19/22 17:37 APTT 28.5 Seconds (21.0-31.0) 05/19/22 17:37 PTT Ratio 1.0 05/19/22 17:37 Sodium 138 mmol/L (136-145) 05/19/22 17:37 Potassium 4.1 mmol/L (3.5-5.1) 05/19/22 17:37 Chloride 103 mmol/L (98-107) 05/19/22 17:37 Carbon Dioxide 29 mmol/L (21-32) 05/19/22 17:37 Anion Gap 6 (3-11) 05/19/22 17:37 BUN 12 mg/dl (6-23) 05/19/22 17:37 Creatinine 0.78 mg/dl (0.6-1.2) 05/19/22 17:37 Est Cr Clr Drug Dosing 88.1 ml/min 05/19/22 17:37 Est GFR ( Amer) 102.7 ml/min 05/19/22 17:37 Est GFR (Non-Af Amer) 88.6 ml/min 05/19/22 17:37 BUN/Creatinine Ratio 15.4 (10-20) 05/19/22 17:37 Glucose 90 mg/dl (70-99(Fasting)) 05/19/22 17:37 Calcium 8.9 mg/dl (8.5-10.1) 05/19/22 17:37 Magnesium 2.2 mg/dl (1.7-2.4) 05/19/22 17:37 Total Bilirubin 0.5 mg/dl (0.2-1.0) 05/19/22 17:37 AST 20 U/L (13-39) 05/19/22 17:37 ALT 16 U/L (7-52) 05/19/22 17:37 Alkaline Phosphatase 43 U/L (34-104) 05/19/22 17:37 Troponin I High Sens 5.0 pg/ml (0-14) 05/19/22 17:37 Total Protein 6.6 gm/dl (6.0-8.3) 05/19/22 17:37 Albumin 3.8 gm/dl (3.4-5.0) 05/19/22 17:37 Globulin 2.8 gm/dl (2.5-4.0) 05/19/22 17:37 Albumin/Globulin Ratio 1.4 (0.9-2) 05/19/22 17:37 Impressions Chest CTA 05/19/22 16:21 CHEST CTA for PULMONARY ARTERIES CT DOSE: 274.10 mGy.cm HISTORY: Shortness of breath. h/o lung cancer/PE, TECHNIQUE: Multiaxial CT images of the chest were performed following the intravenous administration of contrast to evaluate the pulmonary arteries. Maximal intensity projection images were also obtained. A dose lowering technique was utilized adhering to the principles of ALARA. COMPARISON STUDY: Chest CTA 04/14/2022. FINDINGS: No significant abnormality identified within the visualized abdominal structures. No pleural effusion. Trace pericardial fluid, unchanged. The heart remains mildly enlarged. The thyroid gland enhances normally. No mediastinal or hilar lymphadenopathy. Normal caliber esophagus. No suspicious lytic are blastic osseous lesions. Normal caliber thoracic aorta with no evidence for dissection. There is persistent flattening of the interventricular septum with mild enlargement of the right ventricle. This suggests mild right-sided heart strain. Near-complete resolution of the left-sided pulmonary emboli compared to the prior study. There is a small amount of residual thrombus remaining within the left lower lobe segmental branches. Interval progression of the right-sided pulmonary emboli which are now located within the distal right main pulmonary artery and extending into the right middle and lower lobar pulmonary arteries. The right lower lobe segmental/subsegmental pulmonary emboli are again noted. Slight improvement in the consolidative airspace opacities within the bilateral lower lobes. Cystic/emphysematous foci again noted throughout the lungs. Interstitial thickening with innumerable scattered irregular nodules are again noted. This is also slightly improved in the interval. IMPRESSION: 1. Slight progression of the acute on chronic right-sided pulmonary emboli as described above. Near-complete resolution of the left-sided pulmonary emboli. 2. Mild right-sided heart strain, unchanged. 3. Innumerable scattered irregular nodular densities and interstitial thickening within the lungs has slightly improved. Bilateral lower lobe consolidative airspace opacities have also slightly improved in the interval. This could represent pneumonia and/or metastatic disease. ACT 112: Negative or not required by law. Electronically signed by: Kobe Landon M.D. 05/19/2022 6:16 PM Venous Doppler Study 05/19/22 19:12 BILATERAL LOWER EXTREMITY VENOUS DOPPLER HISTORY: Pulmonary embolus. Assess for DVT. COMPARISON STUDY: Lower extremity venous Doppler 04/13/2022. FINDINGS: The right common femoral vein and right superficial femoral vein are p atent. There is occlusive thrombus within the right popliteal vein and one of 2 posterior tibial veins. There is also thrombus within the peroneal veins. No DVT within the left lower extremity. IMPRESSION: 1. Right lower extremity DVT as described above which has slightly progressed in the interval. 2. No DVT within the left lower extremity ACT 112: Negative or not required by law. Electronically signed by: Kobe Landon M.D. 05/19/2022 7:59 PM ECG Additional Comments: EKG with NSR at 84, normal axis, MB=627, QRS=68, PTx=296 Code Status & VTE Plan VTE Prophylaxis Plan VTE Prophylaxis will be ordered: Yes PG Care Time/CCT Total # of Minutes Spent Total Time Spent with Patient: Total time spent is greater than 50% in coordination of care (as documented) at patient's floor/unit and/or counseling patient: Coding Level of Care Code 78984 Initial Inpt Care Lvl 2 Diagnoses Hypoxia R09.02 Lung cancer C34.90 Pulmonary embolism I26.99
[2022-05-20] MEDS ORDERED: ACETAMINOPHEN 325 MG TAB PO PRN (00:22)
[2022-05-20 03:36] LABS: Hematocrit (blood only) 34.8 % (34.1-44.9); Hemoglobin 11.7 g/dl (12.0-16.0); Mean Corpuscular Hemoglobin 31.6 pg (25.0-34.0); Mean Corpuscular Hgb Conc 33.6 g/dL (32.0-36.0); Mean Corpuscular Volume 94.1 fL (80.0-100.0); Mean Platelet Volume 10.2 fL (9.4-12.3); Platelet Count 141 K/uL (130-400); RDW Coefficient of Variation 13.8 % (11.5-14.5); RDW Standard Deviation 47.6 fL (36.4-46.3); White Blood Count 11.63 K/ul (4.8-10.8)
[2022-05-20 03:55] LABS: BUN Creatinine Ratio 16.7 (10-20); Creatinine Clr Calc Pharmacy 98.4 ml/min; Est GFR (African American) 119.4 ml/min; Potassium 3.8 mmol/L (3.5-5.1)
[2022-05-20 04:07] LABS: Partial Thromboplastin Time 55.3 Seconds (21.0-31.0)
--- NOTE | 2022-05-20 12:03 | Electrocardiogram Report ---
Test Reason : Blood Pressure : / mmHG Vent. Rate : 084 BPM Atrial Rate : 084 BPM P-R Int : 136 ms QRS Dur : 068 ms QT Int : 360 ms P-R-T Axes : 061 -16 034 degrees QTc Int : 425 ms Poor data quality, interpretation may be adversely affected Normal sinus rhythm Possible Left atrial enlargement Borderline ECG When compared with ECG of 18-MAY-2022 10:48, No significant change Confirmed by Franklin Patel ([id number]) on 05/20/2022 12:03:20 PM Referred By: REFERRED SELF Confirmed By:Franklin Patel
--- NOTE | 2022-05-20 13:09 | Hospitalist Progress Note ---
Date of Service May 20, 2022 Assessment & Plan (1) Hypoxia: Plan: 52yo female presenting with 2 days of GASPAR and decreased O2 saturation. She has history of Stage Tamera NSCLC diagnosed in [facility] 02/18/22. 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 Patient on Osimertinib 80mg daily, follows with Oncology at [facility]. 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 DVT/PE on Apixaban anticoagulation with last dose being 05/19/22 AM. Patient hypoxic on room air 86-88%, improved with supplemental O2 - 96% on 2L during my encounter. CT and US results above. Patients symptoms and hypoxemia possibly secondary to progression of PE. Pneumonitis appears to be improved on imaging. No evidence of pulmonary edema, infiltrate or pneumothorax Most likely represents failure of apixaban therapy. Patient has been compliant with her apixaban with no missed doses. She has had progression of DVT as well as PE despite adequate treatment. She also reports Lovenox failure in the past as well. Patient has estradiol listed as a home medication which will be discontinued to to increased risk for VTE. -Continue supplemental O2 as needed -Heparin gtt initiated in the ER -> Discussed with Dr. Abi Streeter at [facility]. Feels the Lovenox "failure" was likely underdosing or not a real failure as we don't have definitive imaging from her hospitalization in [place]. Would like to try Lovenox again at 70 mg SQ BID. Four hours after the 3rd dose, will get a Factor Xa level to make sure it is working apppropriately. If so, patient could be discharged on Lovenox instead of warfarin. Also discussed with Dr. Zuniga who felt similarly. (2) Lung cancer: Plan: Chronic. Patient has been taking Osimertinib daily. Possibility of TK-induced pneumonitis for which she was treated with steroids. Medication has temporarily been placed on hold pending results of CT scan. -HIM consultation placed to send CT imaging and results to patient's Oncologist at [facility] - assistance appreciated (3) Pulmonary embolism: Plan: With progression on apixaban therapy -Holding estradiol. Recommend discontinuing this agent. -Heparin gtt - As above Admission and Anticipated Discharge Date Admission Date: May 19, 2022 Subjective Stable today. Reports no fevers/chills, chest pain, abdominal pain, nausea, or vomiting. Physical Exam Constitutional: WD/WN, vitals as above Eyes: EOM intact bilaterally; no conjunctival abnormality ENMT: external ear and nose normal, oropharynx normal Neck: trachea midline, no thyromegaly normal visual inspection Respiratory: normal respiratory effort, lungs clear to auscultation no respiratory distress Cardiovascular: RRR, no murmur, no edema Gastrointestinal (Abdomen): Inspection/Auscultation: abdomen normal to inspection; abdomen not distended Musculoskeletal: no cyanosis or clubbing, extremities motor strength 5/5 Skin: no rashes, warm and dry Neurologic: moves all extremities and awake Psychiatric: Orientation: alert, oriented to person and cooperative Results & Data Results & Data ([facility]) Vital Signs (Past 12 Hours) Vital Signs Temp Pulse Resp BP BP Pulse Ox O2 Del Method 05/20/22 11:42 36.8 C 79 16 111/60 95 Nasal Cannula 05/20/22 08:00 37.1 C 86 16 96/63 L 95 Nasal Cannula 05/20/22 04:15 37.2 C 89 18 91/56 L 92 Nasal Cannula O2 Flow Rate 05/20/22 11:42 4 05/20/22 08:00 6 05/20/22 04:15 4 PG Care Time/CCT Total # of Minutes Spent Total Time Spent with Patient: Total time spent is greater than 50% in coordination of care (as documented) at patient's floor/unit and/or counseling patient: Coding Level of Care Code 64970 Subseq Hosp Care Lvl 3 Diagnoses Hypoxia R09.02 Lung cancer C34.90 Laterality: unspecified laterality Lung location: unspecified part of lung Pulmonary embolism I26.99 Acute cor pulmonale presence: unspecified Chronicity: acute Pulmonary embolism type: other (1) Lung cancer Laterality: unspecified laterality Lung location: unspecified part of lung Qualified Code(s): C34.90 - Malignant neoplasm of unspecified part of unspecified bronchus or lung (2) Pulmonary embolism Acute cor pulmonale presence: unspecified Chronicity: acute Pulmonary embolism type: other Qualified Code(s): I26.99 - Other pulmonary embolism without acute cor pulmonale
[2022-05-20] MEDS ORDERED: HEPARIN STOP ORDER ONE (19:30)
[2022-05-20] MEDS: ENOXAPARIN 80 MG/0.8 ML SYR SQ SCH (19:31)
[2022-05-20] MEDS: HEPARIN SODIUM/DEXTROSE 25,000 UNITS/500 ML BAG IV SCH (19:40)
[2022-05-20] MEDS: MIRTAZAPINE TAB 15 MG TAB PO SCH ×2 (19:56→21:04)
[2022-05-21 07:52] LABS: Hemoglobin 12.5 g/dl (12.0-16.0); Mean Corpuscular Hemoglobin 31.1 pg (25.0-34.0); Mean Corpuscular Hgb Conc 32.9 g/dL (32.0-36.0); Mean Corpuscular Volume 94.5 fL (80.0-100.0); Mean Platelet Volume 10.2 fL (9.4-12.3); Platelet Count 183 K/uL (130-400); RDW Coefficient of Variation 13.8 % (11.5-14.5); RDW Standard Deviation 47.3 fL (36.4-46.3); Red Blood Count 4.02 M/uL (3.93-5.22)
[2022-05-21 08:14] LABS: Partial Thromboplastin Time 28.2 Seconds (21.0-31.0)
[2022-05-21 08:15] LABS: BUN Creatinine Ratio 14.8 (10-20); Calcium 8.6 mg/dl (8.5-10.1); Creatinine Clr Calc Pharmacy 85.1 ml/min; Est GFR (African American) 98.2 ml/min; Est GFR (Non-African American) 84.7 ml/min; Magnesium 2.1 mg/dl (1.7-2.4); Potassium 4.5 mmol/L (3.5-5.1)
[2022-05-21] MEDS: ENOXAPARIN 80 MG/0.8 ML SYR SQ SCH ×2 (08:34→19:39)
[2022-05-21] MEDS: VILAZODONE HCL 1 EA PO SCH (08:35)
--- NOTE | 2022-05-21 18:00 | Hospitalist Progress Note ---
Date of Service May 21, 2022 Assessment & Plan (1) Hypoxia: Plan: 52yo female presenting with 2 days of GASPAR and decreased O2 saturation. She has history of Stage Tamera NSCLC diagnosed in [facility] 02/18/22. 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 Patient on Osimertinib 80mg daily, follows with Oncology at [facility]. 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 DVT/PE on Apixaban anticoagulation with last dose being 05/19/22 AM. CTA shows evidence of progressive PE, while on Apixaban Pneumonitis improved on CT, will resume her Osimertinib Most likely represents failure of apixaban therapy. Patient has been compliant with her apixaban with no missed doses. She has had progression of DVT as well as PE despite adequate treatment. She also reports Lovenox failure in the past as well, although my colleague Discussed with Dr. Abi Streeter at [facility]. Feels the Lovenox "failure" was likely underdosing or not a real failure as we don't have definitive imaging from her hospitalization in [place]. Would like to try Lovenox again at 70 mg SQ BID. Four hours after the 3rd dose, will get a Factor Xa level to make sure it is working apppropriately. If so, patient could be discharged on Lovenox instead of warfarin. Also discussed with Dr. Zuniga who felt similarly. Patient has estradiol listed as a home medication which will be discontinued to to increased risk for VTE. (2) Lung cancer: Plan: Chronic. Patient has been taking Osimertinib daily. Possibility of TK-induced pneumonitis for which she was treated with steroids. Will resume given evidence of improvement of Pneumonitis (3) Pulmonary embolism: Plan: With progression on apixaban therapy -Holding estradiol. Recommend discontinuing this agent. -Heparin gtt - As above Plan Hopefully d/c tomorrow if Xa level is favorable Admission and Anticipated Discharge Date Admission Date: May 19, 2022 Subjective patient seen and examined, says she feels overall better Review of Systems Review of Systems: All systems reviewed are negative, apart from the ones contained in the history. Physical Exam Physical Exam: The patient is awake, alert and oriented 3, well developed and well nourished, normocephalic and atraumatic, lying in bed and in no acute distress. HEENT--PERRL, EOMI, mucous membranes and oropharynx mildly dry Neck--supple. No JVD. No bruits. Thyroid normal, trachea midline, no adenopathy. Heart--normal S1 and S2. No murmurs, rubs or gallops. Lungs--clear bilaterally, no respiratory distress, no accessory muscle use. Abdomen--normal bowel sounds and soft. Mild epigastric and left sided abdominal pain Extremities--no cyanosis or clubbing. No edema. Dermatologic--normal skin turgor, normal color, no abnormal lymph nodes, no rash. Neurologic--cranial nerves II through XII grossly intact. Rheumatologic--normal range of motion. Psychiatric--normal affect. Results & Data Results & Data ([facility]) Vital Signs (Past 12 Hours) Vital Signs Temp Pulse Pulse Resp BP Pulse Ox O2 Del Method 05/21/22 16:32 98.2 F 72 18 104/70 95 05/21/22 10:00 87 05/21/22 10:00 Nasal Cannula 05/21/22 13:00 98.4 F 86 20 91/56 L 96 05/21/22 07:46 98.2 F 66 18 100/61 96 O2 Flow Rate 05/21/22 16:32 05/21/22 10:00 05/21/22 10:00 2 05/21/22 13:00 05/21/22 07:46 PG Care Time/CCT Total # of Minutes Spent Total Time Spent with Patient: Total time spent is greater than 50% in coordination of care (as documented) at patient's floor/unit and/or counseling patient: Coding Level of Care Code 97078 Subseq Hosp Care Lvl 2 Diagnoses Hypoxia R09.02 Lung cancer C34.90 Laterality: unspecified laterality Lung location: unspecified part of lung Pulmonary embolism I26.99 Acute cor pulmonale presence: unspecified Chronicity: acute Pulmonary embolism type: other Time Spent (min) 35 (1) Lung cancer Laterality: unspecified laterality Lung location: unspecified part of lung Qualified Code(s): C34.90 - Malignant neoplasm of unspecified part of unspecified bronchus or lung (2) Pulmonary embolism Acute cor pulmonale presence: unspecified Chronicity: acute Pulmonary embolism type: other Qualified Code(s): I26.99 - Other pulmonary embolism without acute cor pulmonale
[2022-05-21] MEDS ORDERED: OSIMERTINIB MESYLATE PO SCH (21:00)
[2022-05-22] MEDS ORDERED: SODIUM CHLORIDE 0.65% NA SOLN 45 ML (OCEAN) ONE (07:29)
[2022-05-22] MEDS: ENOXAPARIN 80 MG/0.8 ML SYR SQ SCH (09:05)
[2022-05-22] MEDS: VILAZODONE HCL 1 EA PO SCH (09:05)
--- NOTE | 2022-05-22 14:46 | Discharge Summary ---
Date of Service May 22, 2022 Admission HPI Per Admitting Provider Marielena Kirk is a 52yo female with history of Stage SHANKAR NSCLC, adenocarcinoma which was diagnosed in [facility] 02/18/22. 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 Patient on Osimertinib 80mg daily. Patient developed a LLE DVT and PE following a flight from [place] to [place] on March 25, 2022. She was started on Lovenox injections. She had acute worsening of her PEs with hypoxemia while on Lovenox and was started on Apixaban for continued anticoagulation, presumed Lovenox faiure. 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 She has completed a slow taper (decreasing dosage by 5mg every 7 days) with last dose being 05/17/22. Patient has been compliant with her medications. She has been using home O2 as needed, mostly 2-3 L with exertion. She follows with Dr. Abi Streeter at [facility] [place] in [place]. Patient presents today with two days of increased GASPAR and high heart rate. She has noted that her oxygen saturations have been lower with ambulation even while using her home O2 - have been in the upper 80's. She discussed these complaints with her Oncologist and was instructed to get a CT of the chest. In the ER patient is afebrile, HD stable, NAD. She is saturating 86-88% on room air. No complaints of fever, chills, cough, chest pain, allergy symptoms, wheezing, abdominal pain, nausea, vomiting, diarrhea or constipation. No additional complaints at this time. CTA of the chest obtained which revealed slight progression of the acute on chronic right-sided PE with near complete resolution of the left-sided pulmonary emboli. RLE DVT has slightly progressed as well when compared to prior study from 04/13/22. ER Course: Heparin gtt initiated Principal Diagnosis acute on chronic PE Discharge Exam The patient is awake, alert and oriented 3, well developed and well nourished, normocephalic and atraumatic, lying in bed and in no acute distress. HEENT--PERRL, EOMI, mucous membranes and oropharynx mildly dry Neck--supple. No JVD. No bruits. Thyroid normal, trachea midline, no adeno elidia. Heart--normal S1 and S2. No murmurs, rubs or gallops. Lungs--clear bilaterally, no respiratory distress, no accessory muscle use. Abdomen--normal bowel sounds and soft. Mild epigastric and left sided abdominal pain Extremities--no cyanosis or clubbing. No edema. Dermatologic--normal skin turgor, normal color, no abnormal lymph nodes, no rash. Neurologic--cranial nerves II through XII grossly intact. Rheumatologic--normal range of motion. Psychiatric--normal affect. Discharge Data Allergies Allergy/AdvReac Type Severity Reaction Status Date / Time No Known Allergies Allergy Mild Verified 05/19/22 20:09 Consultations 05/20/22 00:22 HIM [Consult Health Information Management] Routine Ordered Studies 05/19/22 16:21 CT angio chest PE protocol Stat 05/19/22 19:12 US venous doppler [facility] Hospital Course (1) Hypoxia: 52yo female presenting with 2 days of GASPAR and decreased O2 saturation. She has history of Stage Shankar NSCLC diagnosed in [facility] 02/18/22. 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 Patient on Osimertinib 80mg daily, follows with Oncology at [facility]. 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 DVT/PE on Apixaban anticoagulation with last dose being 05/19/22 AM. CTA shows evidence of progressive PE, while on Apixaban Pneumonitis improved on CT, will resume her Osimertinib Most likely represents failure of apixaban therapy. Patient has been compliant with her apixaban with no missed doses. She has had progression of DVT as well as PE despite adequate treatment. She also reports Lovenox failure in the past as well, although my colleague Discussed with Dr. Abi Streeter at [facility]. Feels the Lovenox "failure" was likely underdosing or not a real failure as we don't have definitive imaging from her hospitalization in [place]. Would like to try Lovenox again at 70 mg SQ BID. Four hours after the 3rd dose, will get a Factor Xa level to make sure it is working apppropriately. If so, patient could be discharged on Lovenox instead of warfarin. Also discussed with Dr. Zuniga who felt similarly. Patient has estradiol listed as a home medication which will be discontinued to to increased risk for VTE. (2) Lung cancer: Chronic. Patient has been taking Osimertinib daily. Possibility of TK-induced pneumonitis for which she was treated with steroids. Will resume given evidence of improvement of Pneumonitis (3) Pulmonary embolism: d/c on Lovenox 70mg BID Plan Hopefully d/c tomorrow if Xa level is favorable Total Time Total Time Spent Total Time Spent (In Minutes): 35 Discharge Plan Discharge Items Patient Disposition: Home - Self-Care Reason For Visit: PROGRESSION OF DVT / PE Discharge Diagnosis: Progression of DVT Activity: Resume your previous activity Non-emergency contact: Primary Care Provider and Oncologist Call non-emergency contact if: you have any medication questions Follow-up/Referrals: Konrad Avery [Primary Care Provider] - Diet: Regular Addtl Attending Provider Instructions: please make appointment to follow up with your regular Oncologist Pending Studies at Discharge: No Stand-Alone Forms: [facility], Smoking Cessation Medications and DC Order Prescriptions: New enoxaparin [Lovenox] 80 mg/0.8 mL Syringe 70 mg subcut Q12H 30 Days Qty: 42 0RF Continued (DME) Portable Oxygen Misc See Rx Instructions .Route Qty: 1 0RF Rx Instructions: 2 L via nasal cannula portable oxygen concentrator to be used on exertion (test for portability) mirtazapine 15 mg tablet 15 mg PO HS prenat.vits,kurtis,[id number] Tablet 1 tab PO DAILY vilazodone 40 mg tablet 40 mg PO DAILY prednisone 5 mg tablet See Rx Instructions .ROUTE .COMPLEX 56 Days Qty: 252 0RF Rx Instructions: prednisone 5 mg: take 8 tablets (40 mg) daily for 7 days; then decrease by 1 tablet every 7 days until finished Discontinued estradiol 1.25 gram/actuation gel in metered-dose pump 1.25 g transdermal DAILY Eliquis 5 mg (74 tabs) tablets,dose pack 5 mg PO BID Qty: 74 0RF Discharge Orders: Discharge Order (Routine); Ordered 05/22/22 Ordered By: Santa Duggan Admission Data Admit Date/Time: 05/19/22 21:32 Attending Provider: Santa Duggan Admit Provider: Skylar Rivera Primary Care Provider: Konrad Avery Other Interventions: Discharge Summary Assessment (RN) Last Done: 05/22/22 10:58 Coding Level of Care Code D/C DAY MANAGEMENT >30 MINS Diagnoses Hypoxia R09.02 Lung cancer C34.90 Laterality: unspecified laterality Lung location: unspecified part of lung Pulmonary embolism I26.99 Acute cor pulmonale presence: unspecified Chronicity: acute Pulmonary embolism type: other Time Spent (min) 35
== END 2022-05-22 11:39 | disposition home health service (06) | DRG 175 ==
LOC: ED 16:05 → SUATTDRO 21:32 → 4W 21:32